=== PATIENT | female | born 1955 | race Caucasian/White ===

== ENCOUNTER 2017-08-22 11:43 | Emergency (ER) | payer SELFPAY ==
[2017-08-22 12:17] VITALS: RESP 18; TEMP 98.1
--- NOTE | 2017-08-22 14:33 | ED PDOC ---
Arrival/HPI - General Chief Complaint: Trauma Time Seen by Provider: 08/22/17 13:27 Historian: Patient, Family - History of Present Illness Narrative History of Present Illness (Text): 08/22/17 14:28 Pt is a 62 year old female BIB her daughter in law, for right low back pain x 3 days s/p fall after trying to get into the vehicle. Daughter who speaks Telugu describes the pt attempting to step up high with her left foot to climb into the SUV when she lost her footing and fell on her right side. Denies head injury or LOC. Pt had right sided rib fractures 1.5 years that she was treated for without complications. Stated this recent fall has caused tremendous pain that prevents her from ambulating well. Denies chest pain, shortness of breath, fever, chills, nausea, vomiting, diarrhea. 08/22/17 17:28 08/24/17 12:44 Time/Duration: 24 hours Symptom Onset: Sudden Symptom Course: Worsening Quality: Aching, Pressure Severity Level: Moderate Activities at Onset: Rest, Light Context: Sitting, Standing, Walking, Home (unable to stand and walk without pain ) Past Medical History - Provider Review Nursing Documentation Reviewed: Yes - Travel History Have you recently traveled outside [place] w/in the past 3 mons?: No - Past History Past History: No Previous - Infectious Disease Hx of Infectious Diseases: None - Reproductive Menopause: Yes - Hematological/Oncological Hx Cirrhosis: Yes (splenomegally and varices) - Musculoskeletal/Rheumatological Hx Arthritis: Yes - Gastrointestinal Other/Comment: rt renal calculus - Psychiatric Hx Psychophysiologic Disorder: No Hx Substance Use: No Family/Social History Family/Social History: Unknown Family HX Smoking Status: Unknown If Ever Smoked Hx Alcohol Use: No Hx Substance Use: No Allergies/Home Meds Allergies/Adverse Reactions: Allergies No Known Allergies Allergy (Verified 08/22/17 12:17) Home Medications: Home Meds Medication Instructions Recorded Confirmed Cholecalciferol (Vitamin D3) 1,000 unit PO DAILY 08/22/17 08/22/17 [Vitamin D3] Hydroxychloroquine Sulfate 300 mg PO DAILY 08/22/17 08/22/17 Propranolol [Inderal] 20 mg PO DAILY 08/22/17 08/22/17 Spironolactone [Aldactone] 50 mg PO DAILY 02/18/18 02/18/18 Review of Systems - Review of Systems Constitutional: Normal Eyes: Normal ENT: Normal Respiratory: Cough (URI/flu and is taking Tamiflu) Cardiovascular: Normal Gastrointestinal: Normal Musculoskeletal: Back Pain (Right sided back and rib pain) Skin: Normal Neurological: Normal Endocrine: Normal Hemo/Lymphatic: Normal Psychiatric: Normal Physical Exam Vital Signs Reviewed: Yes Vital Signs Temp Pulse Resp BP Pulse Ox 08/22/17 17:56 71 18 102/59 L 97 08/22/17 14:45 80 18 118/68 99 08/22/17 12:07 98.1 F 80 18 120/70 99 Temperature: Afebrile Blood Pressure: Normal Pulse: Regular Respiratory Rate: Normal Appearance: Positive for: Non-Toxic, Uncomfortable Pain Distress: Moderate Mental Status: Positive for: Alert and Oriented X 3 - Systems Exam Head: Present: Atraumatic, Normocephalic Pupils: Present: PERRL Extroacular Muscles: Present: EOMI Conjunctiva: Present: Normal Mouth: Present: Moist Mucous Membranes Neck: Present: Normal Range of Motion Respiratory/Chest: Present: Clear to Auscultation, Good Air Exchange. No: Respiratory Distress, Accessory Muscle Use Cardiovascular: Present: Regular Rate and Rhythm, Normal S1, S2. No: Murmurs Abdomen: Present: Normal Bowel Sounds. No: Tenderness, Distention, Peritoneal Signs Back: Present: Normal Inspection (no bruising or abrasions bilateral), Other ( right L4-5 point tenderness paraspinal) Upper Extremity: Present: Normal Inspection, Normal ROM, NORMAL PULSES. No: Cyanosis, Edema Lower Extremity: Present: Normal Inspection, NORMAL PULSES, Normal ROM. No: Edema Neurological: Present: GCS=15, CN II-XII Intact, Speech Normal Skin: Present: Warm, Dry, Normal Color. No: Rashes Psychiatric: Present: Alert, Oriented x 3, Normal Insight, Normal Concentration Medical Decision Making ED Course and Treatment: 08/22/17 14:33 Impression Pt is a 62 year old female BIB her daughter in law, for right lower back pain x 3 days s/p fall to the ground getting into the vehicle. Plan LS XR and Bilateral rib XR Toradol 30 mg im for pain Progress Note Pt responded well to toradol Family member at bedside produced a folder of recent health documents on the pt that reveal a thrombocytopenia, cirrhosis, splenomegaly, and varices. All NSAIDs and acetaminophen held LS XR revealed a left vertebral compression fracture Both Dr. March and myself spoke with the patient's son via cell phone in the room , who described the extensive admissions at various health facilities in [place] and [place]; we advised the that the patient should be held to do further labs to ascertain blood and chemistry. Both son and sister agreed. Family was strongly advised to find a Primary doctor for the patient who was [place] the [place], with significant health issues, in an effort to get her the care that she requires Labs reveal WBC 2.6 and platelets 67; lab profile improved compared to last labs at [facility] Patient's other son at bedside and gave further information regarding last admission; was assessed and treated at [facility] in [place], by Dr. Kimmie Zepeda contact number is [phone]. Patient was able to get out of bed, stand and walk across the room and back with mild pain; was able to ambulate without assistance; Pt will be dispo'd home with lidocaine TD patch for pain management VSS and pt ambulated out of ER with her son. 08/22/17 18:47 - Lab Interpretations Microbiology Results: Microbiology Results 08/22/17 22:15 Urine,Clean Catch Urine Culture - Final 10-50,000 CFU/ML. MULTIPLE SPECIES. PROBABLE CONTAMINATION. Lab Results: 08/22/17 17:25 08/22/17 17:25 Lab Results 08/22/17 17:45: PT 17.3 H, INR 1.50 H 08/22/17 17:45: Urine Color Dark yellow, Urine Appearance Sl cloudy, Urine pH 6.5, Ur Specific [place] 1.025, Urine Protein 30 H, Urine Glucose (UA) Negative , Urine Ketones Trace H, Urine Blood Moderate H, Urine Nitrate Negative, Urine Bilirubin Small H, Urine Urobilinogen 1.0 H, Ur Leukocyte Esterase Trace H, Urine RBC 10 - 15, Urine WBC 10 - 15, Ur Epithelial Cells 6 - 8, Urine Bacteria Mod 08/22/17 17:25: Sodium 139, Potassium 4.1, Chloride 105, Carbon Dioxide 26, Anion Gap 12, BUN 10, Creatinine 0.8, Est GFR ( Amer) > 60, Est GFR (Non- Af Amer) > 60, Random Glucose 97, Calcium 9.1, Total Bilirubin 1.4 H, Direct Bilirubin 0.5 H, AST 48 H, ALT 32, Alkaline Phosphatase 98, Total Protein 7.9, Albumin 3.2, Globulin 4.7, Albumin/Globulin Ratio 0.7 L 08/22/17 17:25: APTT 35.7 08/22/17 17:25: WBC 2.6 L*, RBC 3.68, Hgb 11.4 L, Hct 34.0 L, MCV 92.4, MCH 31.0 , MCHC 33.5, RDW 14.8 H, Plt Count 67 L, MPV 11.2 H, Gran % 54.6, Lymph % (Auto ) 29.3, [place] % (Auto) 14.5 H, Eos % (Auto) 1.2 L, Baso % (Auto) 0.4, Gran # 1.40 , Lymph # (Auto) 0.8 L, [place] # (Auto) 0.4, Eos # (Auto) 0.0, Baso # (Auto) 0.01 I have reviewed the lab results: Yes (wbc 2.6, Plts 67) - RAD Interpretation Narrative RAD Interpretations (Text): 08/22/17 18:20 PROCEDURE: Lumbar spine 08/22/2017. HISTORY: Injury. COMPARISON: No prior study available for comparison FINDINGS: BONES: Current study reveals in age-indeterminate anterior wedge compression deformities of the L1 segment. There is also an age-indeterminate compression deformity superior L2 endplate. DISC SPACES: Disc space narrowing noted at the at T12-L1 and to a lesser degree L1-L2 levels. Remaining disc space heights are relatively maintained. Small marginal anterolateral osteophyte formation also present at several levels. The facet joints are hypertrophic L5-S1 through the L1-L2 levels in decreasing order of severity. Nonspecific at calcifications present in the left upper abdomen. Multiple calcified injection buttock injection granulomata are present. OTHER FINDINGS: None. IMPRESSION: Age-indeterminate anterior wedge compression fracture L1 segment. There is also a mild on age-indeterminate compression fracture of the superior L1 endplate. Mild multilevel degenerative spondylosis as described. Radiology Orders: 08/22/17 13:28 LS SPINE AP/LAT [RAD] Stat RIBS BILATERAL [RAD] Stat It Quality Analyst: ED Physician, Radiologist - Medication Orders Current Medication Orders: Discontinued Medications Ketorolac Tromethamine (Toradol) 30 mg IM STAT STA Stop: 08/22/17 13:32 Last Admin: 08/22/17 13:56 Dose: 30 mg MAR Pain Assessment Document 08/22/17 13:56 RR (Rec: 08/22/17 13:56 RR [id number]) Pain Reassessment Is this a pain reassessment? Yes Sleep Is patient sleeping during reassessment? No Presence of Pain Presence of Pain Yes Pain Scale Used Pain Scale Used Numeric Location Pain Location Body Site Back Description Description Constant IM Administration Charges Document 08/22/17 13:56 RR (Rec: 08/22/17 13:56 RR [id number]) Injection Site MAR Injection Site Left Deltoid Charges for Administration # of IM Administrations 1 Lidocaine (Lidoderm) 1 ea TD DAILY STA Stop: 08/22/17 19:02 Last Admin: 08/22/17 19:23 Dose: 1 ea MAR Transdermal Patch Site Document 08/22/17 19:23 KAREEM (Rec: 08/22/17 19:28 KAREEM [id number]) Transdermal Patch Site Transdermal Patch Site Right Lower Back Disposition/Present on Arrival - Present on Arrival Any Indicators Present on Arrival: Yes History of DVT/PE: No History of Uncontrolled Diabetes: No Urinary Catheter: No History of Decub. Ulcer: No History Surgical Site Infection Following: None - Disposition Have Diagnosis and Disposition been Completed?: Yes Diagnosis: Vertebral compression fracture, Thrombocytopenia, Cirrhosis Disposition: HOME/ ROUTINE Disposition Time: 18:41 Patient Plan: Discharge Condition: STABLE Discharge Instructions (ExitCare): Vertebral Compression Fracture, Bleeding Precautions Additional Instructions: Emerita Flores, Please follow up with a Primary care doctor in [place] for appropriate care of your vertebral compression fracture and thrombocytopenia. We have prescribed Liocaine 5% transdermal patches that is placed over the low back to assist with managing pain. We strongly encourage you to get physical and occupational therapy. If you experience any alarming symptoms such as fever and worsening pain, return to the emergency department immediately. Take care and be well. Prescriptions: Lidocaine 5% [Lidoderm] 1 ea TD Q12 5 Days #10 patch Referrals: PCP,NO [Primary Care Provider] - Follow up with primary [facility] [place]Outside] - Follow up with primary [facility] [Outside] - Follow up with primary Forms: [employer] (Telugu)
--- NOTE | 2017-08-22 16:30 | RAD ---
PROCEDURE: Bilateral ribs dated 08/22/2017. HISTORY: Injury. COMPARISON: No prior studies available for comparison although correlation made with concurrent radiographs of the lumbar spine. . TECHNIQUE: Two views of the right and two views of the left ribs performed. No prior study available for comparison. FINDINGS: RIGHT RIBS: The current study reveals no definitive radiographic evidence of acute left or right-sided rib fracture. No cortical destructive changes or focal lesions are identified. Note that the lower ribs particularly on the right side are less well seen due to overlying bowel related type artifact. No evidence of infiltrate effusion or pneumothorax. LEFT RIBS: No fracture or focal lesion visualized. LUNGS: Clear. PLEURA: No pneumothorax or pleural fluid. CARDIOVASCULAR: Normal sized heart. No pulmonary vascular congestion. OTHER FINDINGS: None. IMPRESSION: No evidence of acute displaced right or left-sided rib fracture deformities. No infiltrate effusion or pneumothorax. Mild multilevel degenerative spondylosis of the thoracic spine.
--- NOTE | 2017-08-22 16:33 | RAD ---
PROCEDURE: Lumbar spine 08/22/2017. HISTORY: Injury. COMPARISON: No prior study available for comparison FINDINGS: BONES: Current study reveals in age-indeterminate anterior wedge compression deformities of the L1 segment. There is also an age-indeterminate compression deformity superior L2 endplate. DISC SPACES: Disc space narrowing noted at the at T12-L1 and to a lesser degree L1-L2 levels. Remaining disc space heights are relatively maintained. Small marginal anterolateral osteophyte formation also present at several levels. The facet joints are hypertrophic L5-S1 through the L1-L2 levels in decreasing order of severity. Nonspecific at calcifications present in the left upper abdomen. Multiple calcified injection buttock injection granulomata are present. OTHER FINDINGS: None. IMPRESSION: Age-indeterminate anterior wedge compression fracture L1 segment. There is also a mild on age-indeterminate compression fracture of the superior L1 endplate. . Mild multilevel degenerative spondylosis as described.
[2017-08-22 17:49] LABS: BASO # 0.01 K/mm3 (0.0-2.0); BASO % 0.4 % (0.0-3.0); EOS % 1.2 % (1.5-5.0); GRAN # 1.4 (1.4-6.5); GRAN % 54.6 % (50.0-68.0); HEMOGLOBIN 11.4 g/dL (12.0-16.0); LYMPH # 0.8 (1.2-3.4); LYMPH % 29.3 % (22.0-35.0); MEAN CELL VOLUME 92.4 fl (80.0-105.0); MEAN CORPUSCULAR HGB CONC 33.5 g/dl (31.0-37.0); MEAN PLATELET VOLUME 11.2 fl (7.0-11.0); MONO # 0.4 (0.1-0.6); MONO % 14.5 % (1.0-6.0); RBC 3.68 10^6/uL (3.5-6.1); RED CELL DISTRIBUTION WIDTH 14.8 % (11.5-14.5)
[2017-08-22 17:57] VITALS: BP 102/59; PULSE 71; O2SAT 97
[2017-08-22 17:57] LABS: WHITE BLOOD COUNT 2.6 10^3/ul (4.5-11.0)
[2017-08-22 18:00] LABS: ALB/GLOB RATIO 0.7 (1.1-1.8); ALBUMIN 3.2 g/dL (3.0-4.8); ALT/SGPT 32 U/L (7-56); AST/SGOT 48 U/L (14-36); BILIRUBIN,DIRECT 0.5 mg/dL (0.0-0.4); BLOOD UREA NITROGEN 10 mg/dL (7-21); CALCIUM 9.1 mg/dL (8.4-10.5); GFR AFRICAN-AMERICAN > 60; GFR NON-AFRICAN AMERICAN > 60
[2017-08-22 18:03] LABS: PH,URINE 6.5 (4.7-8.0); URINE APPEARANCE SL CLOUDY (CLEAR); URINE BILIRUBIN SMALL (NEGATIVE); URINE BLOOD MODERATE (NEGATIVE); URINE COLOR DARK YELLOW (YELLOW); URINE GLUCOSE (UA) NEGATIVE (NEGATIVE); URINE LEUKOCYTE ESTERASE TRACE Leu/uL (NEGATIVE); URINE NITRATE NEGATIVE (NEGATIVE); URINE PROTEIN 30 mg/dL (<30 mg/dL)
[2017-08-22 18:12] LABS: INR 1.5 (0.93-1.08); PROTHROMBIN TIME 17.3 SECONDS (9.4-12.5)
[2017-08-22 18:18] LABS: URINE BACTERIA MOD (NEG)
[2017-08-22] MEDS ORDERED: Lidocaine 5% Patch TD STA (19:01)
[2017-08-23] MEDS ORDERED: Lidocaine 5% Patch TD SCH (10:00)
== END 2017-08-22 19:28 | disposition home or self-care (01) ==
LOC: ED 11:43
DX: M48.56XA Collapsed vertebra, not elsewhere classified, lumbar region, initial encounter for fracture (principal); D69.6 Thrombocytopenia, unspecified; K74.60 Unspecified cirrhosis of liver
CPT/HCPCS: 71110; 72100; 80053; 81001; 82248; 85025; 85610; 85730; 87086; 96372; 99285; J1885

== ENCOUNTER 2018-09-03 13:13 | Inpatient (IN) | payer OTHER ==
--- NOTE | 2018-09-03 14:31 | ED PDOC ---
Arrival/HPI - General Chief Complaint: ENT Problem Time Seen by Provider: 09/03/18 13:51 Past Medical History - Past History Past History: No Previous - Infectious Disease Hx of Infectious Diseases: None - Reproductive Menopause: Yes - Cardiac Hx Cardiac Disorders: No - Pulmonary Hx Respiratory Disorders: No - Hematological/Oncological Hx Cirrhosis: Yes (splenomegally and varices) - Musculoskeletal/Rheumatological Hx Arthritis: Yes - Gastrointestinal Other/Comment: rt renal calculus - Psychiatric Hx Psychophysiologic Disorder: No Hx Substance Use: No - Anesthesia Hx Anesthesia: No Hx Anesthesia Reactions: No Family/Social History Smoking Status: Unknown If Ever Smoked Hx Alcohol Use: No Hx Substance Use: No Allergies/Home Meds Allergies/Adverse Reactions: Allergies No Known Allergies Allergy (Verified 08/22/17 12:17) Home Medications: Home Meds Medication Instructions Recorded Confirmed Cholecalciferol (Vitamin D3) 1,000 unit PO DAILY 08/22/17 09/03/18 [Vitamin D3] Hydroxychloroquine Sulfate 200 mg PO DAILY 08/22/17 09/03/18 Spironolactone [Aldactone] 50 mg PO DAILY 08/22/17 09/03/18 Physical Exam Vital Signs Temp Pulse Resp BP Pulse Ox 09/03/18 13:53 98.2 F 80 18 102/75 95 Medical Decision Making - RAD Interpretation Radiology Orders: 09/03/18 14:07 ABDOMEN & PELVIS [ABD & PELVIS IV CONTRAST ONLY] [CT] Stat Disposition/Present on Arrival - Present on Arrival History of DVT/PE: No History of Uncontrolled Diabetes: No Urinary Catheter: No History of Decub. Ulcer: No History Surgical Site Infection Following: None - Disposition Referrals: PCP,NO [Primary Care Provider] - Follow up with primary
--- NOTE | 2018-09-03 14:33 | ED PDOC ---
Arrival/HPI - General Chief Complaint: ENT Problem Time Seen by Provider: 09/03/18 13:51 Historian: Patient, Other (friend) - History of Present Illness Narrative History of Present Illness (Text): 09/03/18 14:14 63 year old female, whose past medical history includes hepatosplenomegaly, liver cirrhosis, and recurrent UTI, presents to the emergency department accompanied by friend for complaints of productive cough, chest discomfort, right ear pain, and fever that began last week. Patient also reports bilateral flank pain and blood in urine. She reports that she was diagnosed with a UTI 2 months ago, but has not taken any antibiotics to treat it. Patient is visiting from [place]. Patient denies any chills, shortness of breath, nausea, vomiting, diarrhea, neck pain, headache, dizziness, or any other complaints. Symptom Onset: Gradual Symptom Course: Unchanged Activities at Onset: Light Context: Home Past Medical History - Provider Review Nursing Documentation Reviewed: Yes - Past History Past History: No Previous - Infectious Disease Hx of Infectious Diseases: None - Reproductive Menopause: Yes - Cardiac Hx Cardiac Disorders: No - Pulmonary Hx Respiratory Disorders: No - Hematological/Oncological Hx Cirrhosis: Yes (splenomegally and varices) - Musculoskeletal/Rheumatological Hx Arthritis: Yes - Gastrointestinal Other/Comment: rt renal calculus - Psychiatric Hx Psychophysiologic Disorder: No Hx Substance Use: No - Anesthesia Hx Anesthesia: No Hx Anesthesia Reactions: No Family/Social History - Physician Review Nursing Documentation Reviewed: Yes Family/Social History: No Known Family HX Smoking Status: Unknown If Ever Smoked Hx Alcohol Use: No Hx Substance Use: No Allergies/Home Meds Allergies/Adverse Reactions: Allergies No Known Allergies Allergy (Verified 08/22/17 12:17) Home Medications: Home Meds Medication Instructions Recorded Confirmed Cholecalciferol (Vitamin D3) 1,000 unit PO DAILY 08/22/17 09/03/18 [Vitamin D3] Hydroxychloroquine Sulfate 200 mg PO DAILY 08/22/17 09/03/18 Spironolactone [Aldactone] 50 mg PO DAILY 08/22/17 09/03/18 Review of Systems - Physician Review All systems were reviewed & negative as marked: Yes - Review of Systems ENT: Epistaxis, Other (right ear pain) Respiratory: Cough Cardiovascular: absent: Chest Pain Gastrointestinal: Abdominal Pain. absent: Diarrhea, Nausea, Vomiting Genitourinary Female: Hematuria. absent: Dysuria, Frequency Musculoskeletal: absent: Neck Pain Neurological: absent: Headache Physical Exam - Physical Exam Narrative Physical Exam (Text): Gen: VS reviewed, alert, well developed, well nourished, nontoxic, mild distress. ENT: Spooty excoriation to the right nare. normal pharynx. Eye: EOMI, PERRL. Neck: no JVD, supple, no adenopathy. CV: regular rate, regular rhythm, no rubs, no murmur, no gallops, S1, S2, pulses equal and strong. Pulm: no distress, clear to auscultation, no wheeze, no rhonchi, breath sounds equal, no rales. Abd: mild to moderate RUQ, LUQ, and LLQ tenderness with some guarding, no rebound, no rigidity, normal bowel sounds. Ext: no edema. Skin: good color, no rash, no cyanosis. Psych: responds appropriately to questions, normal affect. Neuro: oriented x 3, CN2-12 intact grossly, motor intact, sensation intact. Vital Signs Reviewed: Yes Vital Signs Temp Pulse Resp BP Pulse Ox 09/03/18 13:53 98.2 F 80 18 102/75 95 Temperature: Afebrile Blood Pressure: Normal Pulse: Regular Respiratory Rate: Normal Medical Decision Making ED Course and Treatment: 09/03/18 14:14 Impression: 63 year old female, presents complaining of productive cough, chest discomfort, and fever that began alst week. Patient also reports bilateral flank pain and bloody urine. Patient was diagnosed with a UTI 2 months ago which has not been treated. Plan: -- CT Abdomen & Pelvis IV Contrast -- EKG -- Labs -- Urinalysis -- Reassess and disposition Progress Notes: 09/03/18 18:[address] pimentel to the hospitalist service. patient to be admitted for multiple systemic complaints including productive cough, abdominal pain and hematuria. Will tx for pneumonia, consult surgery for CT findings showing pericholecystic fluid in light of abdominal pain. The abdominal fluid is probably ascites but will get surgical consult. case discussed with surgery resident and will see pt in consult. - RAD Interpretation Narrative RAD Interpretations (Text): Chest X-Ray Dictator : Shahnaz Berrios MD Report Date : 09/03/2018 16:45 IMPRESSION: Mild left basilar opacities may reflect pneumonia PROCEDURE: CT Abdomen and Pelvis with contrast Dictator : Shahnaz Berrios MD Report Date : 09/03/2018 17:13:09 IMPRESSION: Esophageal varices. Upper abdominal varices including splenic. Nodular hepatic contour. Correlate clinically for cirrhosis. Severe splenomegaly. Linear hypodensity seen at the inferior spleen, possibly cleft. Correlate clinically. Marked gallbladder wall thickening/pericholecystic edema. No calcified gallstones identified. Mild abdominal/pelvic edema. Small perihepatic ascites. Small bowel wall thickening. Correlate clinically for enteritis. Rectal wall thickening. Correlate clinically for infectious/inflammatory etiologies. Follow-up colonoscopy may be considered in order to exclude possibility of malignant neoplasm. Small right effusion. Bibasilar atelectasis. Additional findings as above. Radiology Orders: 09/03/18 14:07 ABDOMEN & PELVIS [ABD & PELVIS IV CONTRAST ONLY] [CT] Stat Market Asset Protection Manager: Radiologist - EKG Interpretation EKG Interpretation (Text): 09/03/18 14:25 EKG shows NSR at 74 BPM with normal QRS, normal axis, no acute ST/T wave abnormalities. Interpreted by me. Interpreted by ED Physician: Yes Type: 12 lead EKG - Scribe Statement The provider has reviewed the documentation as recorded by the Vivienne Orta Provider Scribe Attestation: All medical record entries made by the Vivienne were at my direction and personally dictated by me. I have reviewed the chart and agree that the record accurately reflects my personal performance of the history, physical exam, medical decision making, and the department course for this patient. I have also personally directed, reviewed, and agree with the discharge instructions and disposition. Disposition/Present on Arrival - Present on Arrival Any Indicators Present on Arrival: Yes History of DVT/PE: No History of Uncontrolled Diabetes: No Urinary Catheter: No History of Decub. Ulcer: No History Surgical Site Infection Following: None - Disposition Have Diagnosis and Disposition been Completed?: Yes Diagnosis: Pneumonia, Neutropenia Disposition: HOSPITALIZED Disposition Time: 18:17 Patient Plan: Admission Patient Problems: Current Active Problems Problem Status Onset Pneumonia Acute Neutropenia Acute Condition: GUARDED
[2018-09-03 15:09] LABS: EOS % 1.2 % (1.5-5.0); HEMOGLOBIN 11.1 g/dL (12.0-16.0); LYMPH # 0.5 (1.2-3.4); LYMPH % 29.6 % (22.0-35.0); MEAN CELL VOLUME 90.5 fl (80.0-105.0); MEAN CORPUSCULAR HEMOGLOBIN 30.9 pg (25.0-35.0); MEAN CORPUSCULAR HGB CONC 34.2 g/dl (31.0-37.0); MONO # 0.2 (0.1-0.6); MONO % 14.2 % (1.0-6.0); RBC 3.59 10^6/uL (3.5-6.1); RED CELL DISTRIBUTION WIDTH 14.6 % (11.5-14.5)
[2018-09-03 15:18] LABS: ALB/GLOB RATIO 0.7 (1.1-1.8); ALT/SGPT 38 U/L (7-56); AST/SGOT 95 U/L (14-36); BLOOD UREA NITROGEN 13 mg/dL (7-21); CALCIUM 8.1 mg/dL (8.4-10.5); GFR NON-AFRICAN AMERICAN > 60; LIPASE 179 U/L (23-300)
[2018-09-03 15:19] LABS: INR 1.69; PARTIAL THROMBOPLASTIN TIME 34.6 Seconds (26.9-38.3); PROTHROMBIN TIME 18.8 SECONDS (9.4-12.5)
[2018-09-03 15:25] LABS: PH,URINE 6.5 (4.7-8.0); URINE BILIRUBIN SMALL (NEGATIVE); URINE BLOOD LARGE (NEGATIVE); URINE GLUCOSE (UA) NEGATIVE (NEGATIVE); URINE LEUKOCYTE ESTERASE TRACE Leu/uL (NEGATIVE); URINE PROTEIN TRACE mg/dL (<30 mg/dL)
[2018-09-03 15:26] LABS: URINE APPEARANCE CLEAR (CLEAR); URINE COLOR DARK YELLOW (YELLOW)
[2018-09-03 15:35] LABS: PLATELET COUNT 26 10^3/uL (120.0-450.0); WHITE BLOOD COUNT 1.6 10^3/uL (4.5-11.0)
[2018-09-03 15:40] LABS: URINE BACTERIA SMALL /hpf
[2018-09-03 15:48] LABS: BAND 3 % (0-2); LYMPHOCYTE 26 % (22.0-35.0); MONOCYTE 7 % (1.0-6.0); NEUTROPHIL 64 % (50.0-70.0)
[2018-09-03 15:49] LABS: PLATELET ESTIMATE LOW (NORMAL)
--- NOTE | 2018-09-03 16:49 | RAD ---
HISTORY: cough, pneumonia COMPARISON: Bilateral rib series performed 08/22/17 TECHNIQUE: Chest PA and lateral FINDINGS: LUNGS: Mild left basilar opacities may reflect pneumonia. Please note that chest x-ray has limited sensitivity for the detection of pulmonary masses. PLEURA: No significant pleural effusion identified. No definite pneumothorax . CARDIOVASCULAR: Heart size appears within normal limits. Faint atherosclerotic calcifications present. OSSEOUS STRUCTURES: Osseous demineralization. Degenerative changes. Acromioclavicular arthropathy. Kyphosis. VISUALIZED UPPER ABDOMEN: Unremarkable. OTHER FINDINGS: None. IMPRESSION: Mild left basilar opacities may reflect pneumonia.
--- NOTE | 2018-09-03 17:38 | CT ---
Date of service: 09/03/2018 PROCEDURE: CT Abdomen and Pelvis with contrast HISTORY: pain COMPARISON: None available. TECHNIQUE: Contrast dose: 150 mL Omnipaque 350 IV Radiation dose: Total exam DLP = 731.49 mGy-cm. This CT exam was performed using one or more of the following dose reduction techniques: Automated exposure control, adjustment of the mA and/or kV according to patient size, and/or use of iterative reconstruction technique. FINDINGS: LOWER THORAX: Small right effusion. Bibasilar atelectasis. No visible pneumothorax. Esophageal varices. Upper abdominal varices including splenic. LIVER: Nodular hepatic contour. Hypoattenuation of the liver compatible with hepatic steatosis. GALLBLADDER AND BILE DUCTS: Marked gallbladder wall thickening/pericholecystic edema. No calcified gallstones identified. PANCREAS: Pancreatic atrophy. SPLEEN: Severe splenomegaly. Linear hypodensity seen at the inferior spleen, possibly cleft. Correlate clinically. ADRENALS: Unremarkable KIDNEYS AND URETERS: The kidneys enhance symmetrically. No hydronephrosis or obstructing calculus identified. VASCULATURE: No aortic aneurysm. No atherosclerotic calcification or mural plaque present. BOWEL: Stomach is nondistended. Lack of oral contrast limits evaluation for bowel pathology. Bowel loops appear within normal limits of caliber without evidence of obstruction. Small bowel wall thickening. Rectal wall thickening. APPENDIX: The appendix appears within normal limits of caliber. PERITONEUM: No significant free fluid. No definite free air. LYMPH NODES: Mesenteric and retroperitoneal adenopathy. BLADDER: Unremarkable. REPRODUCTIVE: The uterus is present. 12 mm probable right ovarian cyst. BONES: Osseous demineralization. Degenerative changes. L1 compression fracture deformity. OTHER FINDINGS: Calcifications within bilateral buttocks presumably due to injection granulomas. IMPRESSION: Esophageal varices. Upper abdominal varices including splenic. Nodular hepatic contour. Correlate clinically for cirrhosis. Severe splenomegaly. Linear hypodensity seen at the inferior spleen, possibly cleft. Correlate clinically. Marked gallbladder wall thickening/pericholecystic edema. No calcified gallstones identified. Mild abdominal/pelvic edema. Small perihepatic ascites. Small bowel wall thickening. Correlate clinically for enteritis. Rectal wall thickening. Correlate clinically for infectious/inflammatory etiologies. Follow-up colonoscopy may be considered in order to exclude possibility of malignant neoplasm. Small right effusion. Bibasilar atelectasis. Additional findings as above.
[2018-09-03] MEDS ORDERED: Cefepime IV 2 gm in NS 2 GM/100 ML BAG IVPB STA (17:44)
[2018-09-03] MEDS ORDERED: Sodium Chloride 0.9% 1,000 ML IV STA (18:20)
--- NOTE | 2018-09-03 19:09 | CP.PCM.CON ---
<Stephany Clemente - Last Filed: 09/04/18 20:03> History of Present Illness - History of Present Illness History of Present Illness: General Surgery Consult Note for Dr. Costa consulted for r/o cholecystitis/GB disease Patient is a 63 yr old female with liver cirrhosis (MELD 19 Cookie Chris class B) hepatosplenomegaly, ascites, esophageal varices and recurrent UTI admitted for Pneumonia and possible UTI/Urolithiasis. Surgery was consulted after CT finding of GB wall thickening, mild perihepatic ascites and pericholecystic fluid. Patient endorses mild non specific diffuse abdominal pain worst in her LUQ. She otherwise denies n/v, chills, stool changes and history of gallstones. She follows up regularly at a hepatology clinic in [place]. She recently travelled to [facility]. PMH: hepatosplenomegaly, liver failure, RA PSH: denies ALL: nkda Social: denies ETOH, smoking and illicit drugs Review of Systems - Review of Systems All systems: reviewed and no additional remarkable complaints except (as per HPI) Past Patient History - Infectious Disease Hx of Infectious Diseases: None - Past Social History Smoking Status: Unknown If Ever Smoked - CARDIAC Hx Cardiac Disorders: No - PULMONARY Hx Respiratory Disorders: No - HEMATOLOGICAL/ONCOLOGICAL Hx Cirrhosis: Yes (splenomegally and varices) - MUSCULOSKELETAL/RHEUMATOLOGICAL Hx Arthritis: Yes - GASTROINTESTINAL Other/Comment: rt renal calculus - PSYCHIATRIC Hx Psychophysiologic Disorder: No Hx Substance Use: No - ANESTHESIA Hx Anesthesia: No Hx Anesthesia Reactions: No Meds Allergies/Adverse Reactions: Allergies Allergy/AdvReac Type Severity Reaction Status Date / Time No Known Allergies Allergy Verified 08/22/17 12:17 - Medications Medications: Current Medications Sodium Chloride (Sodium Chloride 0.9%) 1,000 mls @ 999 mls/hr IV .Q1H1M STA Stop: 09/03/18 19:20 Physical Exam - Constitutional Appears: Older Than Stated Age, Cachectic, Chronically Ill - Head Exam Head Exam: ATRAUMATIC - Eye Exam Eye Exam: EOMI - ENT Exam ENT Exam: Mucous Membranes Dry - Respiratory Exam Respiratory Exam: Rales, Rhonchi - Cardiovascular Exam Cardiovascular Exam: REGULAR RHYTHM - GI/Abdominal Exam GI & Abdominal Exam: Guarding (LUQ), Soft, Tenderness (diffuse mild). absent: Distended - Extremities Exam Extremities exam: Negative for: calf tenderness - Back Exam Back exam: CVA tenderness (L), paraspinal tenderness (thoracic) - Neurological Exam Neurological exam: Alert, Oriented x3 - Psychiatric Exam Psychiatric exam: Normal Affect, Normal Mood - Skin Skin Exam: Dry, Intact, Normal Color, Warm Results - Vital Signs Recent Vital Signs: Last Vital Signs Temp 98.2 F 09/03/18 13:53 Pulse 80 09/03/18 13:53 Resp 18 09/03/18 13:53 BP 102/75 09/03/18 13:53 Pulse Ox 95 09/03/18 13:53 - Labs Result Diagrams: 09/03/18 15:07 09/03/18 15:07 Labs: Laboratory Results - last 24 hr 09/03/18 09/03/18 09/03/18 15:07 15:07 15:07 WBC 1.6 L* RBC 3.59 Hgb 11.1 L Hct 32.5 L MCV 90.5 MCH 30.9 MCHC 34.2 RDW 14.6 H Plt Count 26 L* Neut % (Auto) 55.0 Lymph % (Auto) 29.6 [place] % (Auto) 14.2 H Eos % (Auto) 1.2 L Baso % (Auto) 0.0 Lymph # (Auto) 0.5 L [place] # (Auto) 0.2 Eos # (Auto) 0.0 Baso # (Auto) 0.00 Absolute Neuts (auto) 0.89 L Neutrophils % (Manual) 64 Band Neutrophils % 3 H Lymphocytes % (Manual) 26 Monocytes % (Manual) 7 H Platelet Evaluation Low PT 18.8 H INR 1.69 APTT 34.6 Sodium Potassium Chloride Carbon Dioxide Anion Gap BUN Creatinine Est GFR ( Amer) Est GFR (Non-Af Amer) Random Glucose Calcium Magnesium Total Bilirubin AST ALT Alkaline Phosphatase Total Protein Albumin Globulin Albumin/Globulin Ratio Lipase Urine Color Dark yellow Urine Appearance Clear Urine pH 6.5 Ur Specific Schuyler 1.020 Urine Protein Trace H Urine Glucose (UA) Negative Urine Ketones Negative Urine Blood Large H Urine Nitrate Negative Urine Bilirubin Small H Urine Urobilinogen 2.0 H Ur Leukocyte Esterase Trace H Urine RBC 5 - 10 H Urine WBC 1 - 3 Ur Epithelial Cells 4 - 5 Urine Bacteria Small Influenza Typ A,B (EIA) 09/03/18 09/03/18 15:07 15:07 WBC RBC Hgb Hct MCV MCH MCHC RDW Plt Count Neut % (Auto) Lymph % (Auto) [place] % (Auto) Eos % (Auto) Baso % (Auto) Lymph # (Auto) [place] # (Auto) Eos # (Auto) Baso # (Auto) Absolute Neuts (auto) Neutrophils % (Manual) Band Neutrophils % Lymphocytes % (Manual) Monocytes % (Manual) Platelet Evaluation PT INR APTT Sodium 133 Potassium 3.5 L Chloride 100 Carbon Dioxide 26 Anion Gap 10 BUN 13 Creatinine 0.7 Est GFR ( Amer) > 60 Est GFR (Non-Af Amer) > 60 Random Glucose 79 Calcium 8.1 L Magnesium 2.0 Total Bilirubin 2.4 H AST 95 H D ALT 38 Alkaline Phosphatase 93 Total Protein 7.5 Albumin 3.0 Globulin 4.5 Albumin/Globulin Ratio 0.7 L Lipase 179 Urine Color Urine Appearance Urine pH Ur Specific Schuyler Urine Protein Urine Glucose (UA) Urine Ketones Urine Blood Urine Nitrate Urine Bilirubin Urine Urobilinogen Ur Leukocyte Esterase Urine RBC Urine WBC Ur Epithelial Cells Urine Bacteria Influenza Typ A,B (EIA) Negative for flu a/b Assessment & Plan - Assessment and Plan (Free Text) Assessment: 63 F with advanced liver cirrhosis (MELD 19, Cookie chris class B) admitted for pneumonia with pericholecystic fluid and wall thickening on CT Plan: - medical management per primary team - abd US to r/o cholelithiasis - discussed with Dr. Julissa Clemente, PGY 1 - Date & Time Date: 09/03/18 Time: 16:55 <Bruce Costa B - Last Filed: 09/04/18 21:29> Meds - Medications Medications: Current Medications Albuterol/Ipratropium (Duoneb 3 Mg/0.5 Mg (3 Ml) Ud) 3 ml IH [id number] NOELLE Cholecalciferol (Vitamin D) 1,000 intlu PO DAILY NOELLE Last Admin: 09/04/18 11:00 Dose: 1,000 intlu Meropenem (Merrem Iv 1 Gm Premix) 1 gm in 50 mls @ 100 mls/hr IVPB Q8 NOELLE; Protocol Stop: 09/13/18 14:01 Last Admin: 09/04/18 14:26 Dose: 100 mls/hr Vancomycin HCl (Vancomycin 1gm) 1 gm in 250 mls @ 167 mls/hr IVPB Q12H NOELLE; Protocol Stop: 09/13/18 10:16 Last Admin: 09/04/18 11:00 Dose: 167 mls/hr Levofloxacin/Dextrose (Levaquin 750mg) 750 mg IVPB DAILY NOELLE; Protocol Stop: 09/13/18 10:16 Last Admin: 09/04/18 10:59 Dose: 750 mg Pantoprazole Sodium (Protonix Inj) 40 mg IVP Q12 NOELLE Last Admin: 09/04/18 11:00 Dose: 40 mg Propranolol HCl (Inderal) 10 mg PO TID NOELLE Last Admin: 09/04/18 17:28 Dose: Not Given Results - Vital Signs Recent Vital Signs: Last Vital Signs Temp 99.3 F 09/04/18 18:00 Pulse 72 09/04/18 18:00 Resp 18 09/04/18 18:00 BP 93/46 L 09/04/18 18:00 Pulse Ox 95 09/04/18 05:58 - Labs Result Diagrams: 09/04/18 09:00 09/04/18 09:00 Labs: Laboratory Results - last 24 hr 09/03/18 09/03/18 09/03/18 19:00 19:00 19:00 WBC RBC Hgb Hct MCV MCH MCHC RDW Plt Count Neut % (Auto) Lymph % (Auto) [place] % (Auto) Eos % (Auto) Baso % (Auto) Lymph # (Auto) [place] # (Auto) Eos # (Auto) Baso # (Auto) Absolute Neuts (auto) ESR Sodium Potassium Chloride Carbon Dioxide Anion Gap BUN Creatinine Est GFR ( Amer) Est GFR (Non-Af Amer) Random Glucose Calcium Ferritin 483.0 Total Bilirubin AST ALT Alkaline Phosphatase C-React Prot High Sens > 15.00 H Total Protein Albumin Globulin Albumin/Globulin Ratio Alpha Fetoprotein Carcinoembryonic Ag CA 19-9 Antigen CA 125 Antigen Vitamin B12 724 25-OH Vitamin D Total Folate 9.2 Procalcitonin 0.67 H Blood Type Blood Type Confirm Antibody Screen BBK History Checked 09/03/18 09/04/18 09/04/18 20:40 09:00 09:00 WBC RBC Hgb Hct MCV MCH MCHC RDW Plt Count Neut % (Auto) Lymph % (Auto) [place] % (Auto) Eos % (Auto) Baso % (Auto) Lymph # (Auto) [place] # (Auto) Eos # (Auto) Baso # (Auto) Absolute Neuts (auto) ESR 76 H Sodium Potassium Chloride Carbon Dioxide Anion Gap BUN Creatinine Est GFR ( Amer) Est GFR (Non-Af Amer) Random Glucose Calcium Ferritin Total Bilirubin AST ALT Alkaline Phosphatase C-React Prot High Sens Total Protein Albumin Globulin Albumin/Globulin Ratio Alpha Fetoprotein 3.4 Carcinoembryonic Ag CA 19-9 Antigen CA 125 Antigen Vitamin B12 25-OH Vitamin D Total 49.2 Folate Procalcitonin Blood Type O POSITIVE Blood Type Confirm Antibody Screen Negative BBK History Checked No verified bt 09/04/18 09/04/18 09/04/18 09:00 09:00 09:00 WBC 1.5 L* RBC 3.76 Hgb 11.4 L Hct 34.0 L MCV 90.4 MCH 30.3 MCHC 33.5 RDW 15.0 H Plt Count 25 L* Neut % (Auto) 51.6 Lymph % (Auto) 33.6 [place] % (Auto) 12.8 H Eos % (Auto) 0.7 L Baso % (Auto) 1.3 Lymph # (Auto) 0.5 L [place] # (Auto) 0.2 Eos # (Auto) 0.0 Baso # (Auto) 0.02 Absolute Neuts (auto) 0.77 L ESR Sodium 134 Potassium 4.3 Chloride 104 Carbon Dioxide 23 Anion Gap 11 BUN 9 Creatinine 0.6 L Est GFR ( Amer) > 60 Est GFR (Non-Af Amer) > 60 Random Glucose 95 Calcium 8.1 L Ferritin Total Bilirubin 2.0 H AST 79 H ALT 37 Alkaline Phosphatase 82 C-React Prot High Sens Total Protein 7.1 Albumin 2.8 L Globulin 4.3 Albumin/Globulin Ratio 0.7 L Alpha Fetoprotein Carcinoembryonic Ag 2.9 CA 19-9 Antigen 38.5 H CA 125 Antigen 38.7 H Vitamin B12 25-OH Vitamin D Total Folate Procalcitonin Blood Type Blood Type Confirm Antibody Screen BBK History Checked 09/04/18 09:45 WBC RBC Hgb Hct MCV MCH MCHC RDW Plt Count Neut % (Auto) Lymph % (Auto) [place] % (Auto) Eos % (Auto) Baso % (Auto) Lymph # (Auto) [place] # (Auto) Eos # (Auto) Baso # (Auto) Absolute Neuts (auto) ESR Sodium Potassium Chloride Carbon Dioxide Anion Gap BUN Creatinine Est GFR ( Amer) Est GFR (Non-Af Amer) Random Glucose Calcium Ferritin Total Bilirubin AST ALT Alkaline Phosphatase C-React Prot High Sens Total Protein Albumin Globulin Albumin/Globulin Ratio Alpha Fetoprotein Carcinoembryonic Ag CA 19-9 Antigen CA 125 Antigen Vitamin B12 25-OH Vitamin D Total Folate Procalcitonin Blood Type Blood Type Confirm O POSITIVE Antibody Screen BBK History Checked Attending/Attestation - Attestation I have personally seen and examined this patient.: Yes I have fully participated in the care of the patient.: Yes I have reviewed all pertinent clinical information: Yes Notes (Text): Pt was seen and examined at bedside Agree with above note and assessment Pt with pneumonia, neutropenia and Ascites Abdomen: Soft, mildly distended, mild tender Labs and radiology reviewed Ass: No clinical evidence of gallbladder dis, Ascites, PNA Plan: C/w current mx No need for any surgical intervention C.w IV antibiotics f.u prn Plan d.w pt in detail Risk and benefit explained in detail.
[2018-09-03] MEDS ORDERED: Potassium Chloride 20 mEq ER Tab PO ONE (19:37)
[2018-09-03 20:33] LABS: BILIRUBIN,DIRECT 1.2 mg/dL (0.0-0.4)
--- NOTE | 2018-09-03 20:35 | CP.PCM.HP ---
<RadhaMissy - Last Filed: 09/04/18 06:30> History of Present Illness - History of Present Illness History of Present Illness: Missy Garcia, PGY-1, Internal Medical History and Physical for Dr. Wren 63 year old Yi speaking female with past medical history of hepatosplenomegaly, liver cirrhosis due to unknown cause, recurrent UTI, and splenomegaly presents with epigastric abdominal pain radiating to the left side of the lumbar area and to the left scapula. Patient denies any episodes of nausea, vomiting, constipation, or diarrhea. Patient reports traveling to [facility] for 1.5 months and returned one week ago but did not eat anything out of the ordinary. Patient has had liver disease for the past two years and has been evaluated at [facility] but patient and daughter in law are unsure of the results of her tests. However, she was told that her hepatomegaly led to irritation of the spleen leading to splenomegaly possible causing this pain. Patient has had an endoscopy in the past but family at bedside does not recall the results. Patient has also had red urine for 3 or 4 days. Patient has not taken any new medication in that time. Patient does not have any dysuria or change in urinary frequency. Patient was treated for a UTI in [facility] at an unknown time for antibiotics for 7 days. Patient is unable to recall the antibiotic. She also reports subjective fever, chills, body aches, productive cough with green and bloody sputum for 1 week. Patient denies night sweats and weight loss. Influenza screen was negative on this admission. Patient also has chronic leukopenia but is unsure why she has leukopenia. [id number] reported that she will bring a fax of the information from [facility] for more information regarding the patient. 12-point ROS was unremarkable except for what was mentioned above. PMH: as stated above PSH: denies FMHx: denies SHx: denies alcohol, smoking, and recreational drug use Allergies: NKDA PMD: unknown at this time Home medications: spironolactone 50 mg, hydroxychloroquine 300 mg daily, and vitamin D Present on Admission - Present on Admission Any Indicators Present on Admission: No Review of Systems - Review of Systems Review of Systems: except for what was mentioned in HPI Past Patient History - Infectious Disease Hx of Infectious Diseases: None - Past Social History Smoking Status: Unknown If Ever Smoked - CARDIAC Hx Cardiac Disorders: No - PULMONARY Hx Respiratory Disorders: No - HEMATOLOGICAL/ONCOLOGICAL Hx Cirrhosis: Yes (splenomegally and varices) - MUSCULOSKELETAL/RHEUMATOLOGICAL Hx Arthritis: Yes - GASTROINTESTINAL Other/Comment: rt renal calculus - PSYCHIATRIC Hx Psychophysiologic Disorder: No Hx Substance Use: No - ANESTHESIA Hx Anesthesia: No Hx Anesthesia Reactions: No Meds Allergies/Adverse Reactions: Allergies Allergy/AdvReac Type Severity Reaction Status Date / Time No Known Allergies Allergy Verified 08/22/17 12:17 Physical Exam - Constitutional Appears: Toxic, Unkempt - Head Exam Head Exam: ATRAUMATIC, NORMAL INSPECTION, NORMOCEPHALIC - Eye Exam Eye Exam: EOMI, PERRL - ENT Exam ENT Exam: Mucous Membranes Dry - Respiratory Exam Respiratory Exam: Rales, Rhonchi - Cardiovascular Exam Cardiovascular Exam: REGULAR RHYTHM, RRR - GI/Abdominal Exam GI & Abdominal Exam: Distended (mildly), Soft, Tenderness - Extremities Exam Extremities exam: Positive for: full ROM - Neurological Exam Neurological exam: Alert, CN II-XII Intact, Oriented x3 - Skin Skin Exam: Dry, Intact Results - Vital Signs Recent Vital Signs: Last Vital Signs Temp 98.2 F 09/03/18 13:53 Pulse 80 09/03/18 13:53 Resp 18 09/03/18 13:53 BP 102/75 09/03/18 13:53 Pulse Ox 95 09/03/18 13:53 - Labs Result Diagrams: 09/03/18 15:07 09/03/18 15:07 Labs: Laboratory Results - last 24 hr 09/03/18 09/03/18 09/03/18 15:07 15:07 15:07 WBC 1.6 L* RBC 3.59 Hgb 11.1 L Hct 32.5 L MCV 90.5 MCH 30.9 MCHC 34.2 RDW 14.6 H Plt Count 26 L* Neut % (Auto) 55.0 Lymph % (Auto) 29.6 [place] % (Auto) 14.2 H Eos % (Auto) 1.2 L Baso % (Auto) 0.0 Lymph # (Auto) 0.5 L [place] # (Auto) 0.2 Eos # (Auto) 0.0 Baso # (Auto) 0.00 Absolute Neuts (auto) 0.89 L Neutrophils % (Manual) 64 Band Neutrophils % 3 H Lymphocytes % (Manual) 26 Monocytes % (Manual) 7 H Platelet Evaluation Low PT 18.8 H INR 1.69 APTT 34.6 Sodium Potassium Chloride Carbon Dioxide Anion Gap BUN Creatinine Est GFR ( Amer) Est GFR (Non-Af Amer) Random Glucose Calcium Magnesium Total Bilirubin AST ALT Alkaline Phosphatase Total Protein Albumin Globulin Albumin/Globulin Ratio Lipase Urine Color Dark yellow Urine Appearance Clear Urine pH 6.5 Ur Specific [place] 1.020 Urine Protein Trace H Urine Glucose (UA) Negative Urine Ketones Negative Urine Blood Large H Urine Nitrate Negative Urine Bilirubin Small H Urine Urobilinogen 2.0 H Ur Leukocyte Esterase Trace H Urine RBC 5 - 10 H Urine WBC 1 - 3 Ur Epithelial Cells 4 - 5 Urine Bacteria Small Influenza Typ A,B (EIA) 09/03/18 09/03/18 15:07 15:07 WBC RBC Hgb Hct MCV MCH MCHC RDW Plt Count Neut % (Auto) Lymph % (Auto) [place] % (Auto) Eos % (Auto) Baso % (Auto) Lymph # (Auto) [place] # (Auto) Eos # (Auto) Baso # (Auto) Absolute Neuts (auto) Neutrophils % (Manual) Band Neutrophils % Lymphocytes % (Manual) Monocytes % (Manual) Platelet Evaluation PT INR APTT Sodium 133 Potassium 3.5 L Chloride 100 Carbon Dioxide 26 Anion Gap 10 BUN 13 Creatinine 0.7 Est GFR ( Amer) > 60 Est GFR (Non-Af Amer) > 60 Random Glucose 79 Calcium 8.1 L Magnesium 2.0 Total Bilirubin 2.4 H AST 95 H D ALT 38 Alkaline Phosphatase 93 Total Protein 7.5 Albumin 3.0 Globulin 4.5 Albumin/Globulin Ratio 0.7 L Lipase 179 Urine Color Urine Appearance Urine pH Ur Specific [place] Urine Protein Urine Glucose (UA) Urine Ketones Urine Blood Urine Nitrate Urine Bilirubin Urine Urobilinogen Ur Leukocyte Esterase Urine RBC Urine WBC Ur Epithelial Cells Urine Bacteria Influenza Typ A,B (EIA) Negative for flu a/b Assessment & Plan - Assessment and Plan (Free Text) Assessment: 63 year old Yi speaking female with past medical history of hepatosplenomegaly, liver cirrhosis due to unknown cause, recurrent UTI, and splenomegaly presents with epigastric abdominal pain radiating to the left side of the lumbar area and to the left scapula. Plan: #Possible Pneumonia #Flu-Like Symptoms -cxr impression: Mild left basilar opacities may reflect pneumonia -f/u blood cx, procalcitonin, sputum cx, lactate, tb quantiferonm, sputum AFB -flu negative -treat empirically with rocephin 1g ivpb q24h -consulted infectious disease, Dr Koehler #Pancytopenia -consulted heme/onc, Dr Reeves -f/u direct bilirubin, HIV, iron studies, b12/folate, peripheral blood smear, manual plt count -neutropenic precautions -per family, patient was previously advised to have a splenectomy -will hold off on tranfusing FFP at this time - hgb 11, monitor with repeat h/h -type and screen #Hepatic Steatosis #ascites -liver dysfunction self reported to be from prior medication use to treat her rheumatoid arthritis -strong fam hx of liver disease from various causes -CT abd/pelvis w/ contrast shows "Nodular hepatic contour. Hypoattenuation of the liver compatible with hepatic steatosis" -f/u abdominal ultrasound -f/u hep panel, AFP -consulted GI, Dr Umanzor #Small Bowel Thickening #Rectal wall Thickening -patient not having diarrhea or emesis -CT abd/pelvis w/ contrast shows "Small bowel wall thickening. Rectal wall thickening." -f/u CA-125, CA 19-9, CEA -will need colonoscopy at some point to exclude possibility of malignant neoplasm -treat empirically with flagyl 500mg ivpb q8h -consulted GI, Dr Umanzor #Esophageal varices -CT abd/pelvis w/ contrast shows "Esophageal varices. Upper abdominal varices including splenic" -propranolol 10mg po q8h with holding parameters -protonix 40mg ivp q12h -consulted GI, Dr Umanzor #Marked gallbladder wall thickening/pericholecystic edema -CT abd/pelvis w/ contrast shows "Marked gallbladder wall thickening/pericholecystic edema. No calcified gallstones identified." -f/u abdominal ultrasound -surgery consulted, Dr Costa #Hematuria -likely 2/2 to thrombocytopenia -hgb 11, monitor with repeat h/h #UTI -recently treated for UTI in [facility] however patient did not complete tx course -UA showing trace leukocyte esterase -f/u urine cx, procalcitonin -consulted infectious disease, Dr Koehler #Small right effusion -f/u echo #Rhematoid Arthritis -hold home med hydroxychloroquine 200mg po qd for now -f/u carmen w/ reflex, crp, esr #Severe splenomegaly -per family, patient was previously advised to have a splenectomy #Hypokalemia -repleted with k-dur 40mg po -will monitor #Wedge Compression Fracture L1 -f/u vitamin d level -continue home vitamin d3 100mg po qd #12 mm probable right ovarian cyst -f/u AFP, CEA-125 GI prophylaxis: protonix 40 mg DVT prophylaxis: SCD - Date & Time Date: 09/04/18 Time: 01:00 <Alfa Wren - Last Filed: 09/05/18 06:23> Results - Vital Signs Recent Vital Signs: Last Vital Signs Temp 99.8 F H 09/05/18 00:01 Pulse 65 09/05/18 02:00 Resp 20 09/05/18 00:01 BP 106/72 09/05/18 00:01 Pulse Ox 100 09/05/18 00:01 - Labs Result Diagrams: 09/04/18 09:00 09/04/18 09:00 Labs: Laboratory Results - last 24 hr 09/03/18 09/03/18 09/03/18 19:00 19:00 19:00 WBC RBC Hgb Hct MCV MCH MCHC RDW Plt Count Neut % (Auto) Lymph % (Auto) [place] % (Auto) Eos % (Auto) Baso % (Auto) Lymph # (Auto) [place] # (Auto) Eos # (Auto) Baso # (Auto) Absolute Neuts (auto) Sodium Potassium Chloride Carbon Dioxide Anion Gap BUN Creatinine Est GFR ( Amer) Est GFR (Non-Af Amer) Random Glucose Calcium Ferritin 483.0 Total Bilirubin AST ALT Alkaline Phosphatase C-React Prot High Sens > 15.00 H Total Protein Albumin Globulin Albumin/Globulin Ratio Alpha Fetoprotein Carcinoembryonic Ag CA 19-9 Antigen CA 125 Antigen Vitamin B12 724 25-OH Vitamin D Total Folate 9.2 Procalcitonin 0.67 H Blood Type Blood Type Confirm Antibody Screen BBK History Checked 09/04/18 09/04/18 09/04/18 09:00 09:00 09:00 WBC 1.5 L* RBC 3.76 Hgb 11.4 L Hct 34.0 L MCV 90.4 MCH 30.3 MCHC 33.5 RDW 15.0 H Plt Count 25 L* Neut % (Auto) 51.6 Lymph % (Auto) 33.6 [place] % (Auto) 12.8 H Eos % (Auto) 0.7 L Baso % (Auto) 1.3 Lymph # (Auto) 0.5 L [place] # (Auto) 0.2 Eos # (Auto) 0.0 Baso # (Auto) 0.02 Absolute Neuts (auto) 0.77 L Sodium Potassium Chloride Carbon Dioxide Anion Gap BUN Creatinine Est GFR ( Amer) Est GFR (Non-Af Amer) Random Glucose Calcium Ferritin Total Bilirubin AST ALT Alkaline Phosphatase C-React Prot High Sens Total Protein Albumin Globulin Albumin/Globulin Ratio Alpha Fetoprotein 3.4 Carcinoembryonic Ag CA 19-9 Antigen CA 125 Antigen Vitamin B12 25-OH Vitamin D Total 49.2 Folate Procalcitonin Blood Type O POSITIVE Blood Type Confirm Antibody Screen Negative BBK History Checked No verified bt 09/04/18 09/04/18 09/04/18 09:00 09:00 09:45 WBC RBC Hgb Hct MCV MCH MCHC RDW Plt Count Neut % (Auto) Lymph % (Auto) [place] % (Auto) Eos % (Auto) Baso % (Auto) Lymph # (Auto) [place] # (Auto) Eos # (Auto) Baso # (Auto) Absolute Neuts (auto) Sodium 134 Potassium 4.3 Chloride 104 Carbon Dioxide 23 Anion Gap 11 BUN 9 Creatinine 0.6 L Est GFR ( Amer) > 60 Est GFR (Non-Af Amer) > 60 Random Glucose 95 Calcium 8.1 L Ferritin Total Bilirubin 2.0 H AST 79 H ALT 37 Alkaline Phosphatase 82 C-React Prot High Sens Total Protein 7.1 Albumin 2.8 L Globulin 4.3 Albumin/Globulin Ratio 0.7 L Alpha Fetoprotein Carcinoembryonic Ag 2.9 CA 19-9 Antigen 38.5 H CA 125 Antigen 38.7 H Vitamin B12 25-OH Vitamin D Total Folate Procalcitonin Blood Type Blood Type Confirm O POSITIVE Antibody Screen BBK History Checked Attending/Attestation - Attestation I have personally seen and examined this patient.: Yes I have fully participated in the care of the patient.: Yes I have reviewed all pertinent clinical information: Yes
[2018-09-03 20:37] LABS: IRON 22 ug/dL (45-180)
[2018-09-03 20:47] LABS: % IRON SATURATION 10 % (20-55); TOTAL IRON BINDING CAPACITY 217 ug/dL (265-497)
[2018-09-03] MEDS ORDERED: metroNIDAZOLE IV 500 mg/100 ml 500 MG/100 ML BAG IVPB SCH (22:00)
[2018-09-03 23:39] VITALS: BMI 31.8
--- NOTE | 2018-09-04 07:43 | CARD ---
APPROVED REPORT Date of service: 09/03/2018 EKG Measurement Heart [id number] <Conclusion> Normal sinus rhythm Left axis deviation Abnormal ECG
[2018-09-04 09:30] LABS: BASO # 0.02 K/mm3 (0.0-2.0); BASO % 1.3 % (0.0-3.0); EOS % 0.7 % (1.5-5.0); HEMOGLOBIN 11.4 g/dL (12.0-16.0); LYMPH # 0.5 (1.2-3.4); LYMPH % 33.6 % (22.0-35.0); MEAN CELL VOLUME 90.4 fl (80.0-105.0); MEAN CORPUSCULAR HEMOGLOBIN 30.3 pg (25.0-35.0); MEAN CORPUSCULAR HGB CONC 33.5 g/dl (31.0-37.0); MONO # 0.2 (0.1-0.6); MONO % 12.8 % (1.0-6.0); RBC 3.76 10^6/uL (3.5-6.1)
[2018-09-04 09:33] LABS: PLATELET COUNT 25 10^3/uL (120.0-450.0); WHITE BLOOD COUNT 1.5 10^3/uL (4.5-11.0)
[2018-09-04 09:48] LABS: ALB/GLOB RATIO 0.7 (1.1-1.8); ALBUMIN 2.8 g/dL (3.0-4.8); ALT/SGPT 37 U/L (7-56); AST/SGOT 79 U/L (14-36); BLOOD UREA NITROGEN 9 mg/dL (7-21); CALCIUM 8.1 mg/dL (8.4-10.5); GFR NON-AFRICAN AMERICAN > 60
[2018-09-04] MEDS ORDERED: cefTRIAXone 1 gm 1 GM/100 ML BAG IVPB SCH (10:00)
[2018-09-04] MEDS: levoFLOXacin 750 mg in D5W 150 ML BAG IVPB SCH (10:59)
[2018-09-04] MEDS: Vancomycin 1gm in NS 250ml 1 GM/250 ML BAG IVPB SCH ×2 (11:00→21:46)
[2018-09-04] MEDS: Cholecalciferol 1,000 INTLU TAB PO SCH (11:00)
--- NOTE | 2018-09-04 11:03 | US ---
HISTORY: r/o cholecystitis/cholelithiasis COMPARISON: CT abdomen pelvis with contrast performed 09/03/18 TECHNIQUE: Sonographic evaluation of the abdomen. FINDINGS: LIVER: Measures 14.2 cm in sagittal dimension. Echogenic liver may be seen in setting of hepatic parenchymal disease or fatty infiltration. Nodular hepatic contour. Small perihepatic ascites. No focal hepatic mass identified. The main portal vein appears patent with normal directional flow. No intrahepatic bile duct dilatation. GALLBLADDER: No gallstones. Gallbladder wall thickening/pericholecystic edema measuring approximately 7 mm. Negative sonographic Lemons's sign as assessed by the field attendant. COMMON BILE DUCT: Measures 6 mm. PANCREAS: Not well visualized. RIGHT KIDNEY: Measures 10.1 x 4.0 x 4.8 cm. No obstructing calculus or hydronephrosis identified. LEFT KIDNEY: Measures 12.1 x 4.3 x 3.9 cm. No obstructing calculus or hydronephrosis identified SPLEEN: Measures approximately 18.3 cm. AORTA: Limited views appear unremarkable. IVC: Limited views appear unremarkable. OTHER FINDINGS: None. IMPRESSION: Echogenic liver may be seen in setting of hepatic parenchymal disease or fatty infiltration. Nodular hepatic contour with seen in setting of cirrhosis. Small perihepatic ascites. Massive splenomegaly. Gallbladder wall thickening/edema measuring approximately 7 mm. No evidence gallstones. Preliminary impression was provided by [employer].
--- NOTE | 2018-09-04 12:26 | CON ---
DATE OF CONSULTATION: 09/04/2018 The patient is seen earlier today in 269, bed 2. CHIEF COMPLAINT: Fever of 102 x1 day duration. HISTORY OF PRESENT ILLNESS: This is a 63-year-old female, who has a history of cirrhosis, splenomegaly, varices, history of rheumatoid arthritis, history of right renal calculus, history of urinary tract infection, last one 2 months ago. and who was admitted with weakness, found to have a fever and pneumonia. Infectious Disease consultation requested. REVIEW OF SYSTEMS: Reveals the patient has some abdominal pain. There is an episode of diarrhea. No nausea, vomiting now, and no headaches, and there is cough, which is productive, yellowish in color, and abdominal pain is more in the right side. PAST MEDICAL HISTORY: Significant for cirrhosis with splenomegaly and varices. Etiology of cirrhosis of unclear. The patient with rheumatoid arthritis, right renal calculus and recurrent urinary tract infection last one 2 months ago. PAST SURGICAL HISTORY: Noncontributory. ALLERGIES: THE PATIENT HAS NO KNOWN ALLERGIES TO ANY ANTIBIOTICS. MEDICATIONS: Medications at home include hydroxychloroquine, spironolactone, and vitamin D3. PHYSICAL EXAMINATION: GENERAL: The patient is in bed, answering questions. VITAL SIGNS: Temperature of 102, blood pressure is 102/60, respiratory rate of 19, and a heart rate of 84. HEENT: Examination of HEENT is unremarkable. NECK: Supple. LUNGS: Have decreased breath sounds. HEART: Normal S1, S2. ABDOMEN: Soft, nontender. No rebound. No guarding or masses. LABORATORY DATA: Laboratory examination reveals the patient to have, white count is down to 1.6, hemoglobin of 11, platelets of 26,000. The patient has absolute neutrophil count of 0.77. Coagulation reveals an INR of 1.69. PT is 18. Chemistries revealed the patient's bilirubin is 2.4, AST is 95, ALT is 38, alk phos is 93. Lipase is normal. BUN and creatinine are normal. Urinalysis is reviewed, and the patient's influenza is negative. The patient's chest x-ray is reported of left pneumonia. CT scan of the abdomen is reviewed. The patient also had an ultrasound of the abdomen, which results are not available. ASSESSMENT AND PLAN: A 63-year-old female, admitted with severe sepsis, neutropenic febrile patient with healthcare-associated pneumonia, pancytopenia, must rule out underlying gallbladder disease. We will treat the patient with vanco, meropenem, Levaquin pending blood cultures, urine culture, sputum cultures, and nasal MRSA screen, procalcitonin, urine for Legionella antigen, and vanco, meropenem, and Levaquin pending initial workup including echo results and culture results, and we will make further recommendation. Because of her age of 63, we will also order an HIV test. Doug Koehler MD [facility] # [id number]
--- NOTE | 2018-09-04 13:33 | CP.PCM.CON ---
<Jorge Solorio - Last Filed: 09/04/18 15:44> History of Present Illness - History of Present Illness History of Present Illness: Initial GI Consult Note Sandra Rivers is a 63F w/ hx of hepatosplenomegaly, liver cirrhosis due to unknown cause, recurrent UTI, and splenomegaly presents with epigastric abdominal pain radiating to the left side of the lumbar area and to the left scapula. Pt also complaining or fever, productive cough. t is complaining of shap RUQ pain radiating to her back. Denies any aggravating or alleviating factors. Pt recently arrived from [facility] 1 week prior, where she notes being treated for UTI with abx. Pts primary resident is in [place] and she is visiting her Son in [place]. Pt has a previous diagnosis of Cirrhosis and being treated at [facility] in [place]. Pt does not know the etiology of the cirrhosis but believes it may be 2/2 methotrexate (for RA). Pt is currently only taking spironolactone. CT in the ER revealed non-specefic rectal and small bowel wall thickening, esophageal varicies, GB wall thickening w/ some pericolic fluid and inflammatory changes. PMH: hepatosplenomegaly, Cirrhosis of unknown etiology, RA PSH: denies Social: denies ETOH, smoking and illicit drugs Family Hx: Denies any family hx of GI malignancy Endo Hx: unknown ROS: 12 point ROS conducted, neg other than above Past Patient History - Infectious Disease Hx of Infectious Diseases: None - Past Social History Smoking Status: Unknown If Ever Smoked - CARDIAC Hx Cardiac Disorders: No - PULMONARY Hx Respiratory Disorders: No - HEMATOLOGICAL/ONCOLOGICAL Hx Cirrhosis: Yes (splenomegally and varices) - MUSCULOSKELETAL/RHEUMATOLOGICAL Hx Arthritis: Yes - GASTROINTESTINAL Other/Comment: rt renal calculus - PSYCHIATRIC Hx Psychophysiologic Disorder: No Hx Substance Use: No - ANESTHESIA Hx Anesthesia: No Hx Anesthesia Reactions: No Meds Allergies/Adverse Reactions: Allergies Allergy/AdvReac Type Severity Reaction Status Date / Time No Known Allergies Allergy Verified 08/22/17 12:17 - Medications Medications: Current Medications Cholecalciferol (Vitamin D) 1,000 intlu PO DAILY [facility] Last Admin: 09/04/18 11:00 Dose: 1,000 intlu Meropenem (Merrem Iv 1 Gm Premix) 1 gm in 50 mls @ 100 mls/hr IVPB Q8 [facility]; Protocol Stop: 09/13/18 14:01 Vancomycin HCl (Vancomycin 1gm) 1 gm in 250 mls @ 167 mls/hr IVPB Q12H [facility]; Protocol Stop: 09/13/18 10:16 Last Admin: 09/04/18 11:00 Dose: 167 mls/hr Levofloxacin/Dextrose (Levaquin 750mg) 750 mg IVPB DAILY [facility]; Protocol Stop: 09/13/18 10:16 Last Admin: 09/04/18 10:59 Dose: 750 mg Pantoprazole Sodium (Protonix Inj) 40 mg IVP Q12 [facility] Last Admin: 09/04/18 11:00 Dose: 40 mg Propranolol HCl (Inderal) 10 mg PO TID [facility] Last Admin: 09/04/18 10:54 Dose: 10 mg Physical Exam - Constitutional Appears: No Acute Distress, Chronically Ill - Head Exam Head Exam: ATRAUMATIC, NORMOCEPHALIC - Eye Exam Eye Exam: Normal appearance - ENT Exam ENT Exam: Mucous Membranes Moist - Neck Exam Neck exam: Positive for: Normal Inspection - Respiratory Exam Respiratory Exam: Clear to Auscultation Bilateral, NORMAL BREATHING PATTERN. absent: Rales, Rhonchi, Wheezes, Respiratory Distress - Cardiovascular Exam Cardiovascular Exam: REGULAR RHYTHM, +S1, +S2 - GI/Abdominal Exam GI & Abdominal Exam: Normal Bowel Sounds, Soft, Tenderness (RUQ). absent: Diminished Bowel Sounds, Distended, Firm, Guarding, Hernia, Organomegaly, Pulsatile Mass, Rebound, Rigid - Extremities Exam Extremities exam: Negative for: joint swelling, pedal edema - Neurological Exam Neurological exam: Alert, Oriented x3 - Psychiatric Exam Psychiatric exam: Normal Affect, Normal Mood - Skin Skin Exam: Dry, Intact, Normal Color, Warm Results - Vital Signs Recent Vital Signs: Last Vital Signs Temp 100.8 F H 09/04/18 12:00 Pulse 70 09/04/18 12:00 Resp 20 09/04/18 12:00 BP 90/50 L 09/04/18 12:00 Pulse Ox 95 09/04/18 05:58 - Labs Result Diagrams: 09/04/18 09:00 09/04/18 09:00 Labs: Laboratory Results - last 24 hr 09/03/18 09/03/18 09/03/18 15:07 15:07 15:07 WBC 1.6 L* RBC 3.59 Hgb 11.1 L Hct 32.5 L MCV 90.5 MCH 30.9 MCHC 34.2 RDW 14.6 H Plt Count 26 L* Manual Plt Count Neut % (Auto) 55.0 Lymph % (Auto) 29.6 Haines % (Auto) 14.2 H Eos % (Auto) 1.2 L Baso % (Auto) 0.0 Lymph # (Auto) 0.5 L Haines # (Auto) 0.2 Eos # (Auto) 0.0 Baso # (Auto) 0.00 Absolute Neuts (auto) 0.89 L Neutrophils % (Manual) 64 Band Neutrophils % 3 H Lymphocytes % (Manual) 26 Monocytes % (Manual) 7 H Platelet Evaluation Low ESR PT 18.8 H INR 1.69 APTT 34.6 Sodium Potassium Chloride Carbon Dioxide Anion Gap BUN Creatinine Est GFR ( Amer) Est GFR (Non-Af Amer) Random Glucose Lactic Acid Calcium Magnesium Iron TIBC % Saturation Total Bilirubin Direct Bilirubin AST ALT Alkaline Phosphatase Total Protein Albumin Globulin Albumin/Globulin Ratio Lipase Carcinoembryonic Ag Urine Color Dark yellow Urine Appearance Clear Urine pH 6.5 Ur Specific [place] 1.020 Urine Protein Trace H Urine Glucose (UA) Negative Urine Ketones Negative Urine Blood Large H Urine Nitrate Negative Urine Bilirubin Small H Urine Urobilinogen 2.0 H Ur Leukocyte Esterase Trace H Urine RBC 5 - 10 H Urine WBC 1 - 3 Ur Epithelial Cells 4 - 5 Urine Bacteria Small Influenza Typ A,B (EIA) Blood Type Blood Type Confirm Antibody Screen BBK History Checked 09/03/18 09/03/18 09/03/18 15:07 15:07 19:00 WBC RBC Hgb Hct MCV MCH MCHC RDW Plt Count Manual Plt Count Neut % (Auto) Lymph % (Auto) Haines % (Auto) Eos % (Auto) Baso % (Auto) Lymph # (Auto) Haines # (Auto) Eos # (Auto) Baso # (Auto) Absolute Neuts (auto) Neutrophils % (Manual) Band Neutrophils % Lymphocytes % (Manual) Monocytes % (Manual) Platelet Evaluation ESR PT INR APTT Sodium 133 Potassium 3.5 L Chloride 100 Carbon Dioxide 26 Anion Gap 10 BUN 13 Creatinine 0.7 Est GFR ( Amer) > 60 Est GFR (Non-Af Amer) > 60 Random Glucose 79 Lactic Acid Calcium 8.1 L Magnesium 2.0 Iron TIBC % Saturation Total Bilirubin 2.4 H Direct Bilirubin 1.2 H AST 95 H D ALT 38 Alkaline Phosphatase 93 Total Protein 7.5 Albumin 3.0 Globulin 4.5 Albumin/Globulin Ratio 0.7 L Lipase 179 Carcinoembryonic Ag Urine Color Urine Appearance Urine pH Ur Specific [place] Urine Protein Urine Glucose (UA) Urine Ketones Urine Blood Urine Nitrate Urine Bilirubin Urine Urobilinogen Ur Leukocyte Esterase Urine RBC Urine WBC Ur Epithelial Cells Urine Bacteria Influenza Typ A,B (EIA) Negative for flu a/b Blood Type Blood Type Confirm Antibody Screen BBK History Checked 09/03/18 09/03/18 09/03/18 19:00 19:00 20:40 WBC RBC Hgb Hct MCV MCH MCHC RDW Plt Count Manual Plt Count 27 L* Neut % (Auto) Lymph % (Auto) Haines % (Auto) Eos % (Auto) Baso % (Auto) Lymph # (Auto) Haines # (Auto) Eos # (Auto) Baso # (Auto) Absolute Neuts (auto) Neutrophils % (Manual) Band Neutrophils % Lymphocytes % (Manual) Monocytes % (Manual) Platelet Evaluation ESR 76 H PT INR APTT Sodium Potassium Chloride Carbon Dioxide Anion Gap BUN Creatinine Est GFR ( Amer) Est GFR (Non-Af Amer) Random Glucose Lactic Acid Calcium Magnesium Iron 22 L TIBC 217 L % Saturation 10 L Total Bilirubin Direct Bilirubin AST ALT Alkaline Phosphatase Total Protein Albumin Globulin Albumin/Globulin Ratio Lipase Carcinoembryonic Ag Urine Color Urine Appearance Urine pH Ur Specific [place] Urine Protein Urine Glucose (UA) Urine Ketones Urine Blood Urine Nitrate Urine Bilirubin Urine Urobilinogen Ur Leukocyte Esterase Urine RBC Urine WBC Ur Epithelial Cells Urine Bacteria Influenza Typ A,B (EIA) Blood Type Blood Type Confirm Antibody Screen BBK History Checked 09/03/18 09/04/18 09/04/18 21:05 09:00 09:00 WBC 1.5 L* RBC 3.76 Hgb 11.4 L Hct 34.0 L MCV 90.4 MCH 30.3 MCHC 33.5 RDW 15.0 H Plt Count 25 L* Manual Plt Count Neut % (Auto) 51.6 Lymph % (Auto) 33.6 Haines % (Auto) 12.8 H Eos % (Auto) 0.7 L Baso % (Auto) 1.3 Lymph # (Auto) 0.5 L Haines # (Auto) 0.2 Eos # (Auto) 0.0 Baso # (Auto) 0.02 Absolute Neuts (auto) 0.77 L Neutrophils % (Manual) Band Neutrophils % Lymphocytes % (Manual) Monocytes % (Manual) Platelet Evaluation ESR PT INR APTT Sodium Potassium Chloride Carbon Dioxide Anion Gap BUN Creatinine Est GFR ( Amer) Est GFR (Non-Af Amer) Random Glucose Lactic Acid 1.1 Calcium Magnesium Iron TIBC % Saturation Total Bilirubin Direct Bilirubin AST ALT Alkaline Phosphatase Total Protein Albumin Globulin Albumin/Globulin Ratio Lipase Carcinoembryonic Ag Urine Color Urine Appearance Urine pH Ur Specific [place] Urine Protein Urine Glucose (UA) Urine Ketones Urine Blood Urine Nitrate Urine Bilirubin Urine Urobilinogen Ur Leukocyte Esterase Urine RBC Urine WBC Ur Epithelial Cells Urine Bacteria Influenza Typ A,B (EIA) Blood Type O POSITIVE Blood Type Confirm Antibody Screen Negative BBK History Checked No verified bt 09/04/18 09/04/18 09/04/18 09:00 09:00 09:45 WBC RBC Hgb Hct MCV MCH MCHC RDW Plt Count Manual Plt Count Neut % (Auto) Lymph % (Auto) Haines % (Auto) Eos % (Auto) Baso % (Auto) Lymph # (Auto) Haines # (Auto) Eos # (Auto) Baso # (Auto) Absolute Neuts (auto) Neutrophils % (Manual) Band Neutrophils % Lymphocytes % (Manual) Monocytes % (Manual) Platelet Evaluation ESR PT INR APTT Sodium 134 Potassium 4.3 Chloride 104 Carbon Dioxide 23 Anion Gap 11 BUN 9 Creatinine 0.6 L Est GFR ( Amer) > 60 Est GFR (Non-Af Amer) > 60 Random Glucose 95 Lactic Acid Calcium 8.1 L Magnesium Iron TIBC % Saturation Total Bilirubin 2.0 H Direct Bilirubin AST 79 H ALT 37 Alkaline Phosphatase 82 Total Protein 7.1 Albumin 2.8 L Globulin 4.3 Albumin/Globulin Ratio 0.7 L Lipase Carcinoembryonic Ag 2.9 Urine Color Urine Appearance Urine pH Ur Specific [place] Urine Protein Urine Glucose (UA) Urine Ketones Urine Blood Urine Nitrate Urine Bilirubin Urine Urobilinogen Ur Leukocyte Esterase Urine RBC Urine WBC Ur Epithelial Cells Urine Bacteria Influenza Typ A,B (EIA) Blood Type Blood Type Confirm O POSITIVE Antibody Screen BBK History Checked Assessment & Plan - Assessment and Plan (Free Text) Assessment: Sandra Rivers is a 63F w/ hx of hepatosplenomegaly, liver cirrhosis due to unknown cause, recurrent UTI, and splenomegaly presents with epigastric abdominal pain radiating to the left side of the lumbar area and to the left scapula Cirrhosis etiology unknown, MELD-na 09/03/3018:20 Acute Cholecystitis? Esophageal Varicies Hepatosplenomegaly Neutropenia PNA? Plan: -Will not persue Liver w/u at this time, as pt is bring followed in [place] -Will need records from environmental protection forester -no evidence of Acities on CT -continue abx as per ID -onsult hem/onc -Recommend HIDA-Surgery on board -Neutropenic precautions -diet as tolerated -will continue to follow D/W Dr. Umanzor <La Umanzor V - Last Filed: 09/04/18 22:34> Meds - Medications Medications: Current Medications Albuterol/Ipratropium (Duoneb 3 Mg/0.5 Mg (3 Ml) Ud) 3 ml IH [id number] [facility] Cholecalciferol (Vitamin D) 1,000 intlu PO DAILY [facility] Last Admin: 09/04/18 11:00 Dose: 1,000 intlu Meropenem (Merrem Iv 1 Gm Premix) 1 gm in 50 mls @ 100 mls/hr IVPB Q8 [facility]; Protocol Stop: 09/13/18 14:01 Last Admin: 09/04/18 21:46 Dose: 100 mls/hr Vancomycin HCl (Vancomycin 1gm) 1 gm in 250 mls @ 167 mls/hr IVPB Q12H [facility]; Protocol Stop: 09/13/18 10:16 Last Admin: 09/04/18 21:46 Dose: 167 mls/hr Levofloxacin/Dextrose (Levaquin 750mg) 750 mg IVPB DAILY [facility]; Protocol Stop: 09/13/18 10:16 Last Admin: 09/04/18 10:59 Dose: 750 mg Pantoprazole Sodium (Protonix Inj) 40 mg IVP Q12 [facility] Last Admin: 09/04/18 21:46 Dose: 40 mg Propranolol HCl (Inderal) 10 mg PO TID [facility] Last Admin: 09/04/18 17:28 Dose: Not Given Results - Vital Signs Recent Vital Signs: Last Vital Signs Temp 99.3 F 09/04/18 18:00 Pulse 72 09/04/18 18:00 Resp 18 09/04/18 18:00 BP 93/46 L 09/04/18 18:00 Pulse Ox 95 09/04/18 05:58 - Labs Result Diagrams: 09/04/18 09:00 09/04/18 09:00 Labs: Laboratory Results - last 24 hr 09/03/18 09/03/18 09/03/18 19:00 19:00 19:00 WBC RBC Hgb Hct MCV MCH MCHC RDW Plt Count Neut % (Auto) Lymph % (Auto) Haines % (Auto) Eos % (Auto) Baso % (Auto) Lymph # (Auto) Haines # (Auto) Eos # (Auto) Baso # (Auto) Absolute Neuts (auto) Sodium Potassium Chloride Carbon Dioxide Anion Gap BUN Creatinine Est GFR ( Amer) Est GFR (Non-Af Amer) Random Glucose Calcium Ferritin 483.0 Total Bilirubin AST ALT Alkaline Phosphatase C-React Prot High Sens > 15.00 H Total Protein Albumin Globulin Albumin/Globulin Ratio Alpha Fetoprotein Carcinoembryonic Ag CA 19-9 Antigen CA 125 Antigen Vitamin B12 724 25-OH Vitamin D Total Folate 9.2 Procalcitonin 0.67 H Blood Type Blood Type Confirm Antibody Screen BBK History Checked 09/04/18 09/04/18 09/04/18 09:00 09:00 09:00 WBC 1.5 L* RBC 3.76 Hgb 11.4 L Hct 34.0 L MCV 90.4 MCH 30.3 MCHC 33.5 RDW 15.0 H Plt Count 25 L* Neut % (Auto) 51.6 Lymph % (Auto) 33.6 Haines % (Auto) 12.8 H Eos % (Auto) 0.7 L Baso % (Auto) 1.3 Lymph # (Auto) 0.5 L Haines # (Auto) 0.2 Eos # (Auto) 0.0 Baso # (Auto) 0.02 Absolute Neuts (auto) 0.77 L Sodium Potassium Chloride Carbon Dioxide Anion Gap BUN Creatinine Est GFR ( Amer) Est GFR (Non-Af Amer) Random Glucose Calcium Ferritin Total Bilirubin AST ALT Alkaline Phosphatase C-React Prot High Sens Total Protein Albumin Globulin Albumin/Globulin Ratio Alpha Fetoprotein 3.4 Carcinoembryonic Ag CA 19-9 Antigen CA 125 Antigen Vitamin B12 25-OH Vitamin D Total 49.2 Folate Procalcitonin Blood Type O POSITIVE Blood Type Confirm Antibody Screen Negative BBK History Checked No verified bt 09/04/18 09/04/18 09/04/18 09:00 09:00 09:45 WBC RBC Hgb Hct MCV MCH MCHC RDW Plt Count Neut % (Auto) Lymph % (Auto) Haines % (Auto) Eos % (Auto) Baso % (Auto) Lymph # (Auto) Haines # (Auto) Eos # (Auto) Baso # (Auto) Absolute Neuts (auto) Sodium 134 Potassium 4.3 Chloride 104 Carbon Dioxide 23 Anion Gap 11 BUN 9 Creatinine 0.6 L Est GFR ( Amer) > 60 Est GFR (Non-Af Amer) > 60 Random Glucose 95 Calcium 8.1 L Ferritin Total Bilirubin 2.0 H AST 79 H ALT 37 Alkaline Phosphatase 82 C-React Prot High Sens Total Protein 7.1 Albumin 2.8 L Globulin 4.3 Albumin/Globulin Ratio 0.7 L Alpha Fetoprotein Carcinoembryonic Ag 2.9 CA 19-9 Antigen 38.5 H CA 125 Antigen 38.7 H Vitamin B12 25-OH Vitamin D Total Folate Procalcitonin Blood Type Blood Type Confirm O POSITIVE Antibody Screen BBK History Checked Attending/Attestation - Attestation I have personally seen and examined this patient.: Yes I have fully participated in the care of the patient.: Yes I have reviewed all pertinent clinical information: Yes Notes (Text): This is an addendum to GI consult report dictated by the GI Fellow. The patient was seen and examined earlier. Medical records, lab studies, imagings were reviewed. Last 24 hours events reviewed. Agreed with the above treatment plan as outlined in GI Fellow 's notes with the addition of the following Patient's family very at bedside at the time of examination detailed history was again obtained Patient is on neutropenic precautions Gallbladder wall showed significant thickening and also pericholecystic fluid and edema and inflammatory changes noticed more suggestive of acute cholecystitis per radiology appearance Patient does have significant tenderness in the upper abdomen more so in the right upper quadrant area and epigastric area pain Continue antibiotics as per ID HIDA scan 09/04/18 22:31
[2018-09-04] MEDS ORDERED: Cefepime 1gm in NS 100ml 1 GM/100 ML BAG IVPB SCH (14:00)
[2018-09-04 14:18] LABS: FOLATE 9.2 ng/mL
[2018-09-04] MEDS: Meropenem IV 1 gm in NS 1 GM/50 ML BAG IVPB SCH ×2 (14:26→21:46)
[2018-09-04 16:41] LABS: ALPHA FETO PROTEIN 3.4 ng/mL (0.0-7.5)
[2018-09-04] MEDS ORDERED: Albuterol-Ipratrop 3 mg / 0.5 (3 ml) UD IH STA (17:31)
[2018-09-04] MEDS: Albuterol-Ipratrop 3 mg / 0.5 (3 ml) UD IH SCH (20:30)
[2018-09-05] MEDS: Albuterol-Ipratrop 3 mg / 0.5 (3 ml) UD IH SCH ×3 (02:54→20:03)
[2018-09-05] MEDS: Meropenem IV 1 gm in NS 1 GM/50 ML BAG IVPB SCH ×3 (05:27→23:11)
--- NOTE | 2018-09-05 07:31 | CP.PCM.PN ---
<Nikita Marcos - Last Filed: 09/05/18 16:10> Subjective - Date & Time of Evaluation Date of Evaluation: 09/05/18 Time of Evaluation: 07:31 - Subjective Subjective: PGY-1 Medicine Progress note for Dr. Cruz Patient sen and examined at bedside. No acute events overnight. Patient states that her abdominal pain has improved. She denies shortness of breath, chest pain, nausea, vomiting, or any other complaints ath this time. 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 ID #[id number] Objective - Vital Signs/Intake and Output Vital Signs (last 24 hours): Temp Pulse Resp BP Pulse Ox 98.8 F 55 L 20 99/62 L 97 09/05/18 06:00 09/05/18 06:00 09/05/18 06:00 09/05/18 06:00 09/05/18 06:00 Intake and Output: 09/05/18 09/05/18 06:59 18:59 Intake Total 590 Output Total 600 Balance -10 - Medications Medications: Current Medications Albuterol/Ipratropium (Duoneb 3 Mg/0.5 Mg (3 Ml) Ud) 3 ml IH [id number] [facility] Last Admin: 09/05/18 02:54 Dose: Not Given Cholecalciferol (Vitamin D) 1,000 intlu PO DAILY [facility] Last Admin: 09/04/18 11:00 Dose: 1,000 intlu Meropenem (Merrem Iv 1 Gm Premix) 1 gm in 50 mls @ 100 mls/hr IVPB Q8 [facility]; Protocol Stop: 09/13/18 14:01 Last Admin: 09/05/18 05:27 Dose: 100 mls/hr Vancomycin HCl (Vancomycin 1gm) 1 gm in 250 mls @ 167 mls/hr IVPB Q12H [facility]; Protocol Stop: 09/13/18 10:16 Last Admin: 09/04/18 21:46 Dose: 167 mls/hr Levofloxacin/Dextrose (Levaquin 750mg) 750 mg IVPB DAILY [facility]; Protocol Stop: 09/13/18 10:16 Last Admin: 09/04/18 10:59 Dose: 750 mg Pantoprazole Sodium (Protonix Inj) 40 mg IVP Q12 [facility] Last Admin: 09/04/18 21:46 Dose: 40 mg Propranolol HCl (Inderal) 10 mg PO TID [facility] Last Admin: 09/04/18 17:28 Dose: Not Given - Labs Labs: 09/04/18 09:00 09/04/18 09:00 PT 18.8 SECONDS (9.4-12.5) H 09/03/18 15:07 INR 1.69 09/03/18 15:07 APTT 34.6 Seconds (26.9-38.3) 09/03/18 15:07 - Constitutional Appears: Well, Non-toxic, No Acute Distress - Head Exam Head Exam: ATRAUMATIC, NORMAL INSPECTION - Eye Exam Eye Exam: EOMI, Normal appearance Pupil Exam: NORMAL ACCOMODATION, PERRL - ENT Exam ENT Exam: Mucous Membranes Moist - Respiratory Exam Respiratory Exam: Rales. absent: Rhonchi, Wheezes, Respiratory Distress, Stridor - Cardiovascular Exam Cardiovascular Exam: REGULAR RHYTHM, +S1, +S2. absent: Gallop, Rubs, Murmur - GI/Abdominal Exam GI & Abdominal Exam: Soft. absent: Distended, Firm, Guarding, Rigid, Tenderness - Extremities Exam Extremities Exam: absent: Calf Tenderness, Pedal Edema - Neurological Exam Neurological Exam: Alert, Awake, CN II-XII Intact - Psychiatric Exam Psychiatric exam: Normal Affect, Normal Mood - Skin Skin Exam: Dry, Intact, Normal Color, Warm Assessment and Plan - Assessment and Plan (Free Text) Assessment: Patient is a 63 year old female with past medical history of hepatosplenomegaly, liver cirrhosis due to unknown cause, recurrent UTI, and splenomegaly, admitted for pneumonia. Plan: Pneumonia - CXR impression: Mild left basilar opacities may reflect pneumonia - Procalcitonin: 0.67 - Levofloxacin 750mg IV QD (Started 09/04) - Meropenem 1g IV Q8 (Started 09/04) - Vancomycin 1g IV Q12 (Started 09/04) - Blood cx: no growth to date - Sputum cx: normal oral sandro - TB quantiferon, sputum AFB: pending - Influenza: negative - Legionella: pending - Consulted infectious disease, Dr Koehler Pancytopenia - Consulted heme/onc, Dr Reeves - Neutropenic precautions - HIV: negative - Iron studies: Low iron, low TIBC, Low % saturation - B12/folate levels: WNL - Per family, patient was previously advised to have a splenectomy - Will hold off on tranfusing FFP at this time - hgb 11, monitor with repeat h/h - Type and screen Marked gallbladder wall thickening/pericholecystic edema - CT abd/pelvis w/ contrast: Marked gallbladder wall thickening/pericholecystic edema. No calcified gallstones identified. - HIDA scan: normal hepatobiliary tree. Cystic duct is patent. - Abdominal ultrasound: Echogenic liver may be seen in setting of hepatic parenchymal disease or fatty infiltration. Nodular hepatic contour with seen in setting of cirrhosis. Small perihepatic ascites. Massive splenomegaly. Gallbladder wall thickening/edema measuring approximately 7 mm. No evidence gallstones. - Surgery consulted, Dr Costa - No surgical interventions at this time Liver cirrhosis - Liver dysfunction self reported to be from prior medication use to treat her rheumatoid arthritis - Strong fam hx of liver disease from various causes - CT abd/pelvis w/ contrast: Nodular hepatic contour. Hypoattenuation of the liver compatible with hepatic steatosis - Abdominal ultrasound: Echogenic liver may be seen in setting of hepatic parenchymal disease or fatty infiltration. Nodular hepatic contour with seen in setting of cirrhosis. Small perihepatic ascites. Massive splenomegaly. Gallblad lizzette wall thickening/edema measuring approximately 7 mm. No evidence gallstones. - Hepatitis panel:negative - AFP: WNL - consulted GI, Dr Umanzor Small Bowel Thickening - CT abd/pelvis w/ contrast shows small bowel wall thickening. Rectal wall thickening. - CA-125: 38.7 (Normal: 0-35) - CA 19-9: 38.5 (Normal: 0-37) - CEA: WNL - GI consulted, Dr Umanzor - Given a dose of Flagyl Esophageal varices - CT abd/pelvis w/ contrast shows "Esophageal varices. Upper abdominal varices including splenic" - Propranolol 10mg po q8h with holding parameters - Protonix 40mg ivp q12h - GI consulted, Dr Umanzor Hematuria, resolved - Likely 2/2 to thrombocytopenia UTI - Recently treated for UTI in [facility] however patient did not complete tx course - UA showing trace leukocyte esterase - Urine cx: no growth to date - Consulted infectious disease, Dr Koehler Small right pleural effusion - Echo: pending Rhematoid Arthritis - hold home med hydroxychloroquine 200mg po qd for now - carmen, crp, esr: pending Severe splenomegaly - per family, patient was previously advised to have a splenectomy Hx of vitamin D deficiency - Vitamin D level: 49.2 - Continue home medication, vitamin d3 100mg po qd 2 mm probable right ovarian cyst - AFP: WNL - CEA-125:38.7 (Normal: 0-35) GI prophylaxis: protonix 40 mg DVT prophylaxis: SCD Patient seen and case discussed with attending, Dr. Anthony Marcos, PGY-1 <Aramis Cruz - Last Filed: 09/09/18 16:31> Objective - Vital Signs/Intake and Output Vital Signs (last 24 hours): Temp Pulse Resp BP Pulse Ox 98.0 F 84 20 97/62 L 95 09/09/18 06:00 09/09/18 11:07 09/09/18 06:00 09/09/18 11:07 09/09/18 06:00 Intake and Output: 09/09/18 09/09/18 06:59 18:59 Intake Total 1140 Balance 1140 - Labs Labs: 09/09/18 06:20 09/09/18 06:20 PT 19.6 SECONDS (9.4-12.5) H 09/08/18 06:00 INR 1.73 09/08/18 06:00 APTT 34.6 Seconds (26.9-38.3) 09/03/18 15:07 Attending/Attestation - Attestation I have personally seen and examined this patient.: Yes I have fully participated in the care of the patient.: Yes I have reviewed all pertinent clinical information, including history, physical exam and plan: Yes Notes (Text): 09/09/18 16:31 Medical record note made by the resident after discussion with my direction and input after the patient was personally seen and examined by me. I have reviewed the chart and agree that the record accurately reflects by personal performance of the history, physical exam, data review, and medical decision-making, in the course for the patient. I have also personally directed the plan of care.
[2018-09-05 08:57] LABS: HEPATITIS B SURFACE AG Negative (NEGATIVE)
[2018-09-05 09:04] LABS: HEPATITIS A IGM NEGATIVE (NEGATIVE); HEPATITIS B CORE AB NEGATIVE (NEGATIVE)
[2018-09-05 09:13] LABS: HEPATITIS C ANTIBODY NEGATIVE (NEGATIVE)
[2018-09-05 09:15] LABS: BASO # 0.05 K/mm3 (0.0-2.0); BASO % 3.6 % (0.0-3.0); EOS % 2.2 % (1.5-5.0); HEMOGLOBIN 11.3 g/dL (12.0-16.0); LYMPH # 0.6 (1.2-3.4); LYMPH % 41.3 % (22.0-35.0); MEAN CORPUSCULAR HEMOGLOBIN 30.8 pg (25.0-35.0); MEAN CORPUSCULAR HGB CONC 33.8 g/dl (31.0-37.0); MONO # 0.4 (0.1-0.6); MONO % 25.4 % (1.0-6.0); RBC 3.67 10^6/uL (3.5-6.1); RED CELL DISTRIBUTION WIDTH 15.1 % (11.5-14.5)
[2018-09-05 09:19] LABS: PLATELET COUNT 28 10^3/uL (120.0-450.0); WHITE BLOOD COUNT 1.4 10^3/uL (4.5-11.0)
[2018-09-05 09:30] LABS: ALB/GLOB RATIO 0.6 (1.1-1.8); ALBUMIN 2.6 g/dL (3.0-4.8); ALT/SGPT 35 U/L (7-56); AST/SGOT 66 U/L (14-36); BLOOD UREA NITROGEN 10 mg/dL (7-21); CALCIUM 7.9 mg/dL (8.4-10.5); GFR NON-AFRICAN AMERICAN > 60
--- NOTE | 2018-09-05 10:26 | CP.PCM.PN ---
<Anastasiya Wong - Last Filed: 09/05/18 10:28> Subjective - Date & Time of Evaluation Date of Evaluation: 09/05/18 Time of Evaluation: 10:24 - Subjective Subjective: GI progress note for Dr. Alice Wong, PGY-2 Pt seen/examined at bedside with Dr. Umanzor Pt resting comfortably in bed, no current complaints. Abdominal pain has resolved. Objective - Vital Signs/Intake and Output Vital Signs (last 24 hours): Temp Pulse Resp BP Pulse Ox 98.8 F 55 L 20 88/60 L 97 09/05/18 06:00 09/05/18 06:00 09/05/18 06:00 09/05/18 09:03 09/05/18 06:00 Intake and Output: 09/05/18 09/05/18 06:59 18:59 Intake Total 590 Output Total 600 Balance -10 - Medications Medications: Current Medications Albuterol/Ipratropium (Duoneb 3 Mg/0.5 Mg (3 Ml) Ud) 3 ml IH [id number] NOELLE Last Admin: 09/05/18 08:45 Dose: 3 ml Cholecalciferol (Vitamin D) 1,000 intlu PO DAILY NOELLE Last Admin: 09/04/18 11:00 Dose: 1,000 intlu Meropenem (Merrem Iv 1 Gm Premix) 1 gm in 50 mls @ 100 mls/hr IVPB Q8 NOELLE; Protocol Stop: 09/13/18 14:01 Last Admin: 09/05/18 05:27 Dose: 100 mls/hr Vancomycin HCl (Vancomycin 1gm) 1 gm in 250 mls @ 167 mls/hr IVPB Q12H NOELLE; Protocol Stop: 09/13/18 10:16 Last Admin: 09/04/18 21:46 Dose: 167 mls/hr Levofloxacin/Dextrose (Levaquin 750mg) 750 mg IVPB DAILY NOELLE; Protocol Stop: 09/13/18 10:16 Last Admin: 09/04/18 10:59 Dose: 750 mg Pantoprazole Sodium (Protonix Inj) 40 mg IVP Q12 NOELLE Last Admin: 09/04/18 21:46 Dose: 40 mg Propranolol HCl (Inderal) 10 mg PO TID NOELLE Last Admin: 09/05/18 09:03 Dose: Not Given - Labs Labs: 09/05/18 09:00 09/05/18 09:00 PT 18.8 SECONDS (9.4-12.5) H 09/03/18 15:07 INR 1.69 09/03/18 15:07 APTT 34.6 Seconds (26.9-38.3) 09/03/18 15:07 - Constitutional Appears: Non-toxic, No Acute Distress - Head Exam Head Exam: ATRAUMATIC, NORMAL INSPECTION, NORMOCEPHALIC - Eye Exam Eye Exam: EOMI, Normal appearance - ENT Exam ENT Exam: Mucous Membranes Moist, Normal Exam - Neck Exam Neck Exam: Full ROM - Respiratory Exam Respiratory Exam: NORMAL BREATHING PATTERN - Cardiovascular Exam Cardiovascular Exam: REGULAR RHYTHM - GI/Abdominal Exam GI & Abdominal Exam: Soft. absent: Distended (obese), Firm, Guarding, Rigid, Tenderness, Rebound - Extremities Exam Extremities Exam: Normal Inspection - Neurological Exam Neurological Exam: Alert, Awake - Psychiatric Exam Psychiatric exam: Normal Mood - Skin Skin Exam: Dry, Intact, Normal Color, Warm Assessment and Plan - Assessment and Plan (Free Text) Assessment: 63F w/ hx of hepatosplenomegaly, liver cirrhosis due to unknown cause, recurrent UTI, and splenomegaly presents with epigastric abdominal pain radiating to the left side of the lumbar area and to the left scapula- improved, does not currently have abdominal pain Plan: Pt to continue liver w/u in [place] as previously established Continue Abx as per ID Recommend re-starting spironolactone at 50% of normal dose Recommend non selective beta chasity FU heme/onc recs FU HIDA Surgery consulted- no surgical intervention at this time Continue neutropenic precautions Diet as tolerated Will follow D/W Dr. Umanzor <La Umanzor V - Last Filed: 09/05/18 21:21> Objective - Vital Signs/Intake and Output Vital Signs (last 24 hours): Temp Pulse Resp BP Pulse Ox 98.7 F 76 18 102/53 L 97 09/05/18 17:48 09/05/18 18:00 09/05/18 17:48 09/05/18 17:48 09/05/18 06:00 Intake and Output: 09/05/18 09/06/18 18:59 06:59 Intake Total 1230 Output Total 0 Balance 1230 - Medications Medications: Current Medications Albuterol/Ipratropium (Duoneb 3 Mg/0.5 Mg (3 Ml) Ud) 3 ml IH [id number] NOELLE Last Admin: 09/05/18 20:03 Dose: 3 ml Cholecalciferol (Vitamin D) 1,000 intlu PO DAILY NOELLE Last Admin: 09/05/18 10:52 Dose: 1,000 intlu Meropenem (Merrem Iv 1 Gm Premix) 1 gm in 50 mls @ 100 mls/hr IVPB Q8 NOELLE; Protocol Stop: 09/13/18 14:01 Last Admin: 09/05/18 17:05 Dose: 100 mls/hr Vancomycin HCl (Vancomycin 1gm) 1 gm in 250 mls @ 167 mls/hr IVPB Q12H NOELLE; Protocol Stop: 09/13/18 10:16 Last Admin: 09/05/18 10:51 Dose: 167 mls/hr Levofloxacin/Dextrose (Levaquin 750mg) 750 mg IVPB DAILY NOELLE; Protocol Stop: 09/13/18 10:16 Last Admin: 09/05/18 10:51 Dose: 750 mg Pantoprazole Sodium (Protonix Inj) 40 mg IVP Q12 NOELLE Last Admin: 09/05/18 10:51 Dose: 40 mg Propranolol HCl (Inderal) 10 mg PO TID NOELLE Last Admin: 09/05/18 17:06 Dose: Not Given - Labs Labs: 09/05/18 09:00 09/05/18 09:00 PT 18.8 SECONDS (9.4-12.5) H 09/03/18 15:07 INR 1.69 09/03/18 15:07 APTT 34.6 Seconds (26.9-38.3) 09/03/18 15:07 Attending/Attestation - Attestation I have personally seen and examined this patient.: Yes I have fully participated in the care of the patient.: Yes I have reviewed all pertinent clinical information, including history, physical exam and plan: Yes Notes (Text): This is an addendum to GI progress report dictated by Resident. The patient was seen and examined earlier. Medical records, lab studies, imagings were reviewed. Last 24 hours events reviewed. Agreed with the above treatment plan as outlined in Resident 's notes with the addition of the following HIDA scan was reviewed which showed prompt visualization On examination abdomen soft there is no significant improvement of the right upper quadrant tenderness Chest x-ray was reviewed has bibasilar opacities suggestive of pneumonia Complete antibiotics as per ID Requested records from [facility] Patient did have a small ascites patient has been on Aldactone 50 mg daily We will start Aldactone 25 mg in the a.m. we will titrate the dose based on clinical response 09/05/18 21:17
[2018-09-05] MEDS: Vancomycin 1gm in NS 250ml 1 GM/250 ML BAG IVPB SCH ×2 (10:51→21:14)
[2018-09-05] MEDS: levoFLOXacin 750 mg in D5W 150 ML BAG IVPB SCH (10:51)
[2018-09-05] MEDS: Cholecalciferol 1,000 INTLU TAB PO SCH (10:52)
--- NOTE | 2018-09-05 11:54 | PN ---
DATE: 09/05/2018 SUBJECTIVE: The patient is in bed in no acute distress, nontoxic. No fevers. PHYSICAL EXAMINATION: VITAL SIGNS: Temperature is 98, blood pressure is 100/60, respiratory rate of 20. HEENT: Unremarkable. NECK: Supple. LUNGS: Decreased breath sounds. HEART: Normal, S1 and S2. ABDOMEN: Soft, nontender. LABORATORY DATA: Examination reveals the patient's blood cultures have no growth in 24 hours. Sputum cultures, normal sandro. Urine cultures are negative. HIV is negative and hepatitis profile is negative. Influenza is negative. ASSESSMENT AND PLAN: A 63-year-old female who is admitted with severe sepsis due to being febrile. The patient with healthcare-associated pneumonia, pancytopenia, must rule out underlying gallbladder disease and neutropenic febrile, on vancomycin, meropenem, and Levaquin. Workup initially is pending and Dr. Umanzor's note consultation is reviewed. This patient with cirrhosis, questionable acute cholecystitis, esophageal varices, hepatosplenomegaly, neutropenic febrile patient. Ultrasound of the abdomen is reviewed, common bile duct is 6 mm. No gallstone, but there is gallbladder wall thickening with edema. Negative sonographic Lemons's sign and a chest x-ray also from the 2nd is reviewed, left basilar opacity. We will follow with you. Doug Koehler MD
--- NOTE | 2018-09-05 14:55 | NM ---
Date of service: 09/05/2018 PROCEDURE: Nuclear Medicine Hepatobiliary Scan HISTORY: suspect cholecysitis COMPARISON: None available. TECHNIQUE: 5.1 mCi of technetium 99m Mebrofenin was administered intravenously. Planar images of the abdomen were obtained at 5 min intervals to 60 mins. Delayed images were also obtained. FINDINGS: LIVER: Timely and homogenous uptake. COMMON BILE DUCT: identified at 15 mins. GALLBLADDER: identified at 30 mins. SMALL BOWEL: Identified at 15 mins. IMPRESSION: Normal Hepatobiliary Scan. The cystic duct is patent.
--- NOTE | 2018-09-05 17:39 | CON ---
DATE: 09/05/2018 REQUESTING PHYSICIAN: Dr. Solorio. REASON FOR CONSULTATION: Pancytopenia. HISTORY OF PRESENT ILLNESS: Ms. Rivers is a 63-year-old female admitted to the hospital with a recurrent UTI. She has history of hepatosplenomegaly and cirrhosis of the liver. Also complaining of epigastric pain. She sees a viscose cellar charge hand in [place], where she lives, she is visiting [place]. She was diagnosed with cirrhosis of the liver at [facility] in [place]. She also has history of rheumatoid arthritis on methotrexate. She has low white blood cell count 1.4, low platelet count of 26,000. The entire medical record on [facility] reviewed. She had low white count of 2.6 in 2018 in August, platelet count 67 . blood counts have worsened compared to past year. PAST MEDICAL HISTORY: Cirrhosis of liver unknown etiology, rheumatoid arthritis, and hepatosplenomegaly. PAST SURGICAL HISTORY: None. SOCIAL HISTORY: No history of alcohol abuse. No history of drug abuse. FAMILY HISTORY: No positive family history of malignancy or blood disorder. REVIEW OF SYSTEMS: Complaining of epigastric pain. Rest of the 12-point review of systems reviewed and negative. ALLERGIES: NO KNOWN DRUG ALLERGIES. MEDICATIONS: Home medications; vitamin D. Current medications; vitamin D, meropenem, vancomycin, levofloxacin, propanolol, and pantoprazole. PHYSICAL EXAMINATION GENERAL: Comfortable in bed and in no acute distress. VITAL SIGNS: Temperature 98.9, heart rate 80 per minute, blood pressure 100/60, respiratory rate 16 per minute, on oxygen by nasal cannula. HEENT: Negative. NECK: No lymphadenopathy. CHEST: Air entry present and equal bilaterally. No added sound. ABDOMEN: Hepatosplenomegaly present. EXTREMITIES: No edema. CENTRAL NERVOUS SYSTEM: Alert and oriented x3. No focal sensory motor deficit. LABORATORY DATA: White count 1.4, hemoglobin 11.3, hematocrit 33.4, and platelet 28. Sodium 134, potassium 4.3, calcium 7.9, iron 22, and B12 of 724. CAT scan of abdomen and pelvis showed splenomegaly. ASSESSMENT AND PLAN: 1. Cirrhosis of liver. 2. Hepatosplenomegaly. 3. Leukopenia thrombocytopenia. PLAN: Leukopenia thrombocytopenia likely related hepatosplenomegaly and cirrhosis of liver. No obvious bleeding right now. Bone marrow aspiration biopsy is recommended to rule out other causes of leukopenia thrombocytopenia including MDS, bone marrow infiltration with malignancy. I discussed with the daughter who was at bedside. I advised her that she will need bone marrow aspiration biopsy to find the cause of leukopenia and thrombocytopenia, daughter refused the bone marrow aspiration biopsy. She said she has her doctors in [place] and she has received blood transfusion in the past with her marine services technician She would prefer to continue further workup and treatment with doctors in [place]. She also sees viscose cellar charge hand in [place]. She has upcoming appointment there in three months. I advised the daughter to let us know if she decides for bone marrow aspiration biopsy during this hospitalization. Absolute neutrophil count is 380. She is currently on IV antibiotics. No indication for Neupogen unless etiology of neutropenia is established. Platelet transfusion if bleeding. Thank you, Dr. Solorio for allowing us to participate in Ms. Rivers's care. Oralia Reeves MD JONATHAN
[2018-09-06] MEDS: Albuterol-Ipratrop 3 mg / 0.5 (3 ml) UD IH SCH ×3 (02:10→13:36)
[2018-09-06] MEDS: Meropenem IV 1 gm in NS 1 GM/50 ML BAG IVPB SCH ×3 (05:20→21:50)
--- NOTE | 2018-09-06 06:42 | CP.PCM.PN ---
<Nikita Marcos - Last Filed: 09/06/18 15:50> Subjective - Date & Time of Evaluation Date of Evaluation: 09/06/18 Time of Evaluation: 06:42 - Subjective Subjective: PGY-1 Medicine Progress Note for Dr. Cruz Patient seen and evaluated at bedside. Patient had no acute events overnight. She states that her abdominal pain has resolved. She denies fevers, chills, headaches, shortness of breath, chest pain, N/V/D, or any other complaints. Objective - Vital Signs/Intake and Output Vital Signs (last 24 hours): Temp Pulse Resp BP Pulse Ox 98.2 F 66 18 95/44 L 99 09/06/18 05:26 09/06/18 05:51 09/06/18 05:26 09/06/18 05:26 09/06/18 05:26 Intake and Output: 09/05/18 09/06/18 18:59 06:59 Intake Total 1230 890 Output Total 0 3 Balance 1230 887 - Medications Medications: Current Medications Albuterol/Ipratropium (Duoneb 3 Mg/0.5 Mg (3 Ml) Ud) 3 ml IH [id number] NOELLE Last Admin: 09/06/18 02:10 Dose: 3 ml Cholecalciferol (Vitamin D) 1,000 intlu PO DAILY NOELLE Last Admin: 09/05/18 10:52 Dose: 1,000 intlu Meropenem (Merrem Iv 1 Gm Premix) 1 gm in 50 mls @ 100 mls/hr IVPB Q8 NOELLE; Protocol Stop: 09/13/18 14:01 Last Admin: 09/06/18 05:20 Dose: 100 mls/hr Vancomycin HCl (Vancomycin 1gm) 1 gm in 250 mls @ 167 mls/hr IVPB Q12H NOELLE; Protocol Stop: 09/13/18 10:16 Last Admin: 09/05/18 21:14 Dose: 167 mls/hr Levofloxacin/Dextrose (Levaquin 750mg) 750 mg IVPB DAILY NOELLE; Protocol Stop: 09/13/18 10:16 Last Admin: 09/05/18 10:51 Dose: 750 mg Pantoprazole Sodium (Protonix Inj) 40 mg IVP Q12 NOELLE Last Admin: 09/05/18 21:14 Dose: 40 mg Propranolol HCl (Inderal) 10 mg PO TID NOLELE Last Admin: 09/05/18 17:06 Dose: Not Given - Labs Labs: 09/05/18 09:00 09/05/18 09:00 PT 18.8 SECONDS (9.4-12.5) H 09/03/18 15:07 INR 1.69 09/03/18 15:07 APTT 34.6 Seconds (26.9-38.3) 09/03/18 15:07 - Additional Findings Additional findings: - Constitutional Appears: Well, Non-toxic, No Acute Distress - Head Exam Head Exam: ATRAUMATIC, NORMAL INSPECTION - Eye Exam Eye Exam: EOMI, Normal appearance Pupil Exam: NORMAL ACCOMODATION, PERRL - ENT Exam ENT Exam: Mucous Membranes Moist - Respiratory Exam Respiratory Exam: Clear to auscultate bilaterally absent: Rhonchi, Wheezes, Rales, Respiratory Distress, Stridor - Cardiovascular Exam Cardiovascular Exam: REGULAR RHYTHM, +S1, +S2. absent: Gallop, Rubs, Murmur - GI/Abdominal Exam GI & Abdominal Exam: Soft. absent: Distended, Firm, Guarding, Rigid, Tenderness - Extremities Exam Extremities Exam: absent: Calf Tenderness, Pedal Edema - Neurological Exam Neurological Exam: Alert, Awake, CN II-XII Intact - Psychiatric Exam Psychiatric exam: Normal Affect, Normal Mood - Skin Skin Exam: Dry, Intact, Normal Color, Warm Assessment and Plan - Assessment and Plan (Free Text) Assessment: Patient is a 63 year old female with past medical history of hepatosplenomegaly, liver cirrhosis due to unknown cause, recurrent UTI, and splenomegaly, admitted for pneumonia. Plan: Pneumonia - CXR impression: Mild left basilar opacities may reflect pneumonia - Procalcitonin: 0.67 - Consulted infectious disease, Dr Koehler - Start Doxycycline 100mg PO Q12 (Started on 09/06) - Meropenem 1g IV Q8 (Started 09/04) - Discontinued Vancomycin and Meropenem - Blood cx: no growth to date - Sputum cx: normal oral sandro - TB quantiferon, sputum AFB: pending - Influenza: negative - Legionella: pending Pancytopenia - Consulted heme/onc, Dr. Reeves - Keep patient on neutropenic precautions - Transfuse platelets if patient is bleeding - HIV: negative - Iron studies: Low iron, low TIBC, Low % saturation - B12/folate levels: WNL Marked gallbladder wall thickening/pericholecystic edema - CT abd/pelvis w/ contrast: Marked gallbladder wall thickening/pericholecystic edema. No calcified gallstones identified. - HIDA scan: normal hepatobiliary tree. Cystic duct is patent. - Abdominal ultrasound: Gallbladder wall thickening/edema measuring approximately 7 mm. No evidence gallstones. - Surgery consulted, Dr Costa - No surgical interventions at this time Liver cirrhosis - Start Spironolactone 25mg PO QD - Hepatitis panel: negative - AFP: WNL - Consulted GI, Dr. Umanzor Esophageal varices - Propranolol 10mg PO Q8 - Protonix 40mg ivp q12h - GI consulted, Dr Umanzor Hematuria, resolved - Likely 2/2 to thrombocytopenia Asymptomatic UTI - UA showing trace leukocyte esterase - Urine cx: no growth to date - Consulted infectious disease, Dr Koehler Small right pleural effusion - Echo: global hypokinesis of the left ventricle. Systolic function mildly impaired. Rhematoid Arthritis - Hold home med hydroxychloroquine 200mg po qd for now - carmen, crp, esr: pending Hx of vitamin D deficiency - Vitamin D level: 49.2 - Continue home medication, Vitamin D3 100mg PO QD 2 mm probable right ovarian cyst - AFP: WNL - CEA-125:38.7 (Normal: 0-35) GI prophylaxis: protonix 40 mg DVT prophylaxis: SCD Patient seen and case discussed with attending, Dr. Anthony Marcos, PGY-1 <Aramis Cruz - Last Filed: 09/09/18 16:31> Objective - Vital Signs/Intake and Output Vital Signs (last 24 hours): Temp Pulse Resp BP Pulse Ox 98.0 F 84 20 97/62 L 95 09/09/18 06:00 09/09/18 11:07 09/09/18 06:00 09/09/18 11:07 09/09/18 06:00 Intake and Output: 09/09/18 09/09/18 06:59 18:59 Intake Total 1140 Balance 1140 - Labs Labs: 09/09/18 06:20 09/09/18 06:20 PT 19.6 SECONDS (9.4-12.5) H 09/08/18 06:00 INR 1.73 09/08/18 06:00 APTT 34.6 Seconds (26.9-38.3) 09/03/18 15:07 Attending/Attestation - Attestation I have personally seen and examined this patient.: Yes I have fully participated in the care of the patient.: Yes I have reviewed all pertinent clinical information, including history, physical exam and plan: Yes Notes (Text): 09/09/18 16:31 Medical record note made by the resident after discussion with my direction and input after the patient was personally seen and examined by me. I have reviewed the chart and agree that the record accurately reflects by personal performance of the history, physical exam, data review, and medical decision-making, in the course for the patient. I have also personally directed the plan of care.
[2018-09-06 07:58] LABS: BASO # 0.01 K/mm3 (0.0-2.0); BASO % 0.9 % (0.0-3.0); EOS % 3.5 % (1.5-5.0); HEMOGLOBIN 10.6 g/dL (12.0-16.0); LYMPH # 0.6 (1.2-3.4); LYMPH % 50.4 % (22.0-35.0); MEAN CELL VOLUME 91.5 fl (80.0-105.0); MEAN CORPUSCULAR HEMOGLOBIN 30.1 pg (25.0-35.0); MEAN CORPUSCULAR HGB CONC 32.9 g/dl (31.0-37.0); MONO # 0.2 (0.1-0.6); MONO % 19.1 % (1.0-6.0); RBC 3.52 10^6/uL (3.5-6.1); RED CELL DISTRIBUTION WIDTH 15.3 % (11.5-14.5)
[2018-09-06 08:05] LABS: ALB/GLOB RATIO 0.6 (1.1-1.8); ALBUMIN 2.4 g/dL (3.0-4.8); ALT/SGPT 30 U/L (7-56); AST/SGOT 59 U/L (14-36); BLOOD UREA NITROGEN 9 mg/dL (7-21); CALCIUM 7.9 mg/dL (8.4-10.5); GFR NON-AFRICAN AMERICAN > 60
[2018-09-06 08:19] LABS: PLATELET COUNT 37 10^3/uL (120.0-450.0); WHITE BLOOD COUNT 1.2 10^3/uL (4.5-11.0)
[2018-09-06] MEDS: Cholecalciferol 1,000 INTLU TAB PO SCH (10:01)
[2018-09-06] MEDS: levoFLOXacin 750 mg in D5W 150 ML BAG IVPB SCH (10:01)
--- NOTE | 2018-09-06 10:54 | CARD ---
APPROVED REPORT Date of service: 09/05/2018 EXAM: Two-dimensional and M-mode echocardiogram with Doppler and color Doppler. INDICATION RT EFFUSION, R/O CARDIAC ETIOLOGY 2D DIMENSIONS Left Atrium (2D)4.0 (1.6-4.0cm) M-Mode DIMENSIONS Aortic Root3.30 (2.2-3.7cm)Aortic Cusp Exc.1.70 (1.5-2.0cm) Aortic Valve AoV Peak Hizkkmga431.0cm/Courtney Peak GR.7mmHg Mitral Valve MV E Zodiquha26.3cm/sMV A Xptifpgj11.5cm/sE/A ratio1.1 TDI Lateral E' Peak V12.80cm/sMedial E' Peak V7.31cm/sE/Lateral E'5.3 E/Medial E'9.2 Pulmonary Valve PV Peak Zbpvujdn46.0cm/sPV Peak Grad.2mmHg Tricuspid Valve TR Peak [id number]/sRAP [id number] Peak Gr.20mmHg [id number] LEFT VENTRICLE The left ventricle is normal size. There is normal left ventricular wall thickness. The systolic function is mildly impaired. There is global hypokinesis of the left ventricle. Transmitral Doppler flow pattern is Grade I-abnormal relaxation pattern. RIGHT VENTRICLE The right ventricle is normal size. There is normal right ventricular wall thickness. The right ventricular systolic function is normal. ATRIA The left atrium is borderline dilated. The right atrium size is normal. AORTIC VALVE The aortic valve is mildly thickened. No aortic regurgitation is present. There is no aortic valvular stenosis. MITRAL VALVE The mitral valve is mildly thickened. There is no mitral valve regurgitation noted. There is no mitral valve stenosis. TRICUSPID VALVE The tricuspid valve is normal in structure. There is mild tricuspid regurgitation. PULMONIC VALVE There is trace to mild pulmonic valvular regurgitation. GREAT VESSELS The aortic root is normal in size. The IVC is normal in size and collapses >50% with inspiration. PERICARDIAL EFFUSION There is no pericardial effusion. <Conclusion> There is normal left ventricular wall thickness. The systolic function is mildly impaired. There is global hypokinesis of the left ventricle. Transmitral Doppler flow pattern is Grade I-abnormal relaxation pattern. There is mild tricuspid regurgitation.
--- NOTE | 2018-09-06 12:14 | CP.PCM.PN ---
<Anastasiya Wong - Last Filed: 09/06/18 12:12> Subjective - Date & Time of Evaluation Date of Evaluation: 09/06/18 Time of Evaluation: 10:15 - Subjective Subjective: GI progress note for Dr. Umanzor-Anastasiya Wong, PGY-2 Pt seen/examined at bedside with Dr. Umanzor Pt resting comfortably in bed. Abdominal pain has resolved, tolerating heart healthy diet. Denies N & V. Objective - Vital Signs/Intake and Output Vital Signs (last 24 hours): Temp Pulse Resp BP Pulse Ox 98.2 F 85 18 95/44 L 99 09/06/18 05:26 09/06/18 10:00 09/06/18 05:26 09/06/18 05:26 09/06/18 05:26 Intake and Output: 09/06/18 09/06/18 06:59 18:59 Intake Total 890 Output Total 3 Balance 887 - Medications Medications: Current Medications Albuterol/Ipratropium (Duoneb 3 Mg/0.5 Mg (3 Ml) Ud) 3 ml IH [id number] [facility] Last Admin: 09/06/18 07:53 Dose: 3 ml Cholecalciferol (Vitamin D) 1,000 intlu PO DAILY [facility] Last Admin: 09/06/18 10:01 Dose: 1,000 intlu Doxycycline Hyclate (Doryx) 100 mg PO Q12 [facility]; Protocol Stop: 09/11/18 22:01 Meropenem (Merrem Iv 1 Gm Premix) 1 gm in 50 mls @ 100 mls/hr IVPB Q8 [facility]; Protocol Stop: 09/13/18 14:01 Last Admin: 09/06/18 05:20 Dose: 100 mls/hr Pantoprazole Sodium (Protonix Ec Tab) 40 mg PO Q12 [facility] Propranolol HCl (Inderal) 10 mg PO TID [facility] Last Admin: 09/05/18 17:06 Dose: Not Given Spironolactone (Aldactone) 25 mg PO DAILY [facility] - Labs Labs: 09/06/18 07:15 09/06/18 07:15 PT 18.8 SECONDS (9.4-12.5) H 09/03/18 15:07 INR 1.69 09/03/18 15:07 APTT 34.6 Seconds (26.9-38.3) 09/03/18 15:07 - Constitutional Appears: Non-toxic, No Acute Distress - Head Exam Head Exam: ATRAUMATIC, NORMAL INSPECTION, NORMOCEPHALIC - Eye Exam Eye Exam: EOMI, Normal appearance - ENT Exam ENT Exam: Mucous Membranes Moist, Normal Exam - Neck Exam Neck Exam: Full ROM - Respiratory Exam Respiratory Exam: NORMAL BREATHING PATTERN. absent: Respiratory Distress - Cardiovascular Exam Cardiovascular Exam: REGULAR RHYTHM, +S1, +S2 - GI/Abdominal Exam GI & Abdominal Exam: Soft. absent: Distended (obese), Firm, Guarding, Rigid, Tenderness, Rebound - Extremities Exam Extremities Exam: Normal Inspection - Neurological Exam Neurological Exam: Alert, Awake, CN II-XII Intact - Skin Skin Exam: Dry, Intact, Normal Color, Warm Assessment and Plan - Assessment and Plan (Free Text) Assessment: 63F w/ hx of hepatosplenomegaly, liver cirrhosis due to unknown cause, recurrent UTI, and splenomegaly presents with epigastric abdominal pain radiating to the left side of the lumbar area and to the left scapula- improved, does not currently have abdominal pain Plan: Continue liver work up in [place] as previously established Abx as per ID Recommend Spironolactone at 25mg daily Continue Propranolol HIDA negative Continue diet Further care as per primary team DW Dr. Umanzor <La Umanzor V - Last Filed: 09/06/18 20:44> Objective - Vital Signs/Intake and Output Vital Signs (last 24 hours): Temp Pulse Resp BP Pulse Ox 98.7 F 80 19 96/58 L 99 09/06/18 18:00 09/06/18 18:00 09/06/18 18:00 09/06/18 18:00 09/06/18 05:26 Intake and Output: 09/06/18 09/07/18 18:59 06:59 Intake Total 200 Balance 200 - Medications Medications: Current Medications Albuterol/Ipratropium (Duoneb 3 Mg/0.5 Mg (3 Ml) Ud) 3 ml IH [id number] [facility] Last Admin: 09/06/18 13:36 Dose: 3 ml Cholecalciferol (Vitamin D) 1,000 intlu PO DAILY [facility] Last Admin: 09/06/18 10:01 Dose: 1,000 intlu Doxycycline Hyclate (Doryx) 100 mg PO Q12 [facility]; Protocol Stop: 09/11/18 22:01 Meropenem (Merrem Iv 1 Gm Premix) 1 gm in 50 mls @ 100 mls/hr IVPB Q8 [facility]; Protocol Stop: 09/13/18 14:01 Last Admin: 09/06/18 13:09 Dose: 100 mls/hr Pantoprazole Sodium (Protonix Ec Tab) 40 mg PO Q12 [facility] Propranolol HCl (Inderal) 10 mg PO TID [facility] Last Admin: 09/06/18 17:27 Dose: Not Given Spironolactone (Aldactone) 25 mg PO DAILY [facility] Last Admin: 09/06/18 13:09 Dose: 25 mg - Labs Labs: 09/06/18 07:15 09/06/18 07:15 PT 18.8 SECONDS (9.4-12.5) H 09/03/18 15:07 INR 1.69 09/03/18 15:07 APTT 34.6 Seconds (26.9-38.3) 09/03/18 15:07 Attending/Attestation - Attestation I have personally seen and examined this patient.: Yes I have fully participated in the care of the patient.: Yes I have reviewed all pertinent clinical information, including history, physical exam and plan: Yes Notes (Text): This is an addendum to GI progress report dictated by the GI Fellow. The patient was seen and examined earlier. Medical records, lab studies, imagings were reviewed. Last 24 hours events reviewed. Agreed with the above treatment plan as outlined in GI Fellow 's notes with the addition of the following Clinically patient is doing better discussed with the medical team regarding obtaining previous blood work from [place]. Patient is presently neutropenic which could be her baseline WBC. Is reasonable to obtain the records from [facility] Continue the antibiotics Will restart Aldactone 09/06/18 20:42
[2018-09-06] MEDS: Vancomycin 1gm in NS 250ml 1 GM/250 ML BAG IVPB SCH (12:55)
--- NOTE | 2018-09-06 15:42 | PN ---
DATE: 09/06/2018 SUBJECTIVE: The patient is in bed, in no acute distress, nontoxic. The patient was seen earlier this morning. PHYSICAL EXAMINATION: VITAL SIGNS: Temperature is 98, blood pressure is 95/40, respiratory rate of 18. HEENT: Unremarkable. NECK: Supple. LUNGS: Have decreased breath sounds. HEART: Normal S1 and S2. ABDOMEN: Soft, nontender. LABORATORY DATA: Reveals the patient's white count of 1.2, hemoglobin of 10, platelets of 37,000, absolute count is 300; and chemistries are noted. Urinalysis is noted. Serology is reviewed, blood cultures negative, urine cultures negative, and sputum cultures are normal sandro. ASSESSMENT AND PLAN: This is a 63-year-old female who was admitted with severe sepsis and neutropenic febrile patient with healthcare-associated pneumonia, pancytopenia. Initial osorio cultures negative. Currently on Levaquin, meropenem, and vancomycin. We will discontinue the vancomycin. We will also discontinue the Levaquin and place the patient on p.o. doxycycline, continue the meropenem, short course of antibiotics, awaiting for resolution of the WBCs, and we will follow closely with you. We will repeat the urine Legionella antigen, initial order was not carried out. Doug Koehler MD
[2018-09-06] MEDS ORDERED: Pantoprazole 40 mg EC Tab PO SCH (22:00)
[2018-09-07] MEDS: Albuterol-Ipratrop 3 mg / 0.5 (3 ml) UD IH SCH ×4 (01:23→20:45)
[2018-09-07] MEDS: Meropenem IV 1 gm in NS 1 GM/50 ML BAG IVPB SCH ×3 (05:05→21:59)
[2018-09-07] MEDS ORDERED: Albuterol-Ipratrop 3 mg / 0.5 (3 ml) UD IH STA (06:11)
--- NOTE | 2018-09-07 06:14 | CP.PCM.PCO ---
<Magno Tiwari - Last Filed: 09/07/18 06:12> Addendum Addendum: 09/07/18 06:12 PGY1 House Doctor: Was paged about Patient due to complaint of "chest burning." Patient was seen and evaluated at bedside. EKG was normal sinus rhythm. No arrhythmia, no tachycardia, no T wave abnormalities. Patient is resting comfortably in bed, however on exam she has diffuse wheezing. Troponin ordered. Duoneb ordered. <Aramis Cruz - Last Filed: 09/10/18 11:58> Attending/Attestation - Attestation I have personally seen and examined this patient.: Yes I have fully participated in the care of the patient.: Yes I have reviewed all pertinent clinical information: Yes
[2018-09-07 06:18] LABS: BASO # 0.01 K/mm3 (0.0-2.0); BASO % 0.8 % (0.0-3.0); EOS % 2.3 % (1.5-5.0); HEMOGLOBIN 10.4 g/dL (12.0-16.0); LYMPH # 0.5 (1.2-3.4); LYMPH % 40.9 % (22.0-35.0); MEAN CELL VOLUME 91.9 fl (80.0-105.0); MEAN CORPUSCULAR HEMOGLOBIN 30.1 pg (25.0-35.0); MEAN CORPUSCULAR HGB CONC 32.8 g/dl (31.0-37.0); MONO # 0.2 (0.1-0.6); MONO % 16.7 % (1.0-6.0); RBC 3.45 10^6/uL (3.5-6.1); RED CELL DISTRIBUTION WIDTH 15.5 % (11.5-14.5)
[2018-09-07 06:38] LABS: ALB/GLOB RATIO 0.6 (1.1-1.8); ALBUMIN 2.5 g/dL (3.0-4.8); ALT/SGPT 30 U/L (7-56); AST/SGOT 58 U/L (14-36); BLOOD UREA NITROGEN 8 mg/dL (7-21); GFR NON-AFRICAN AMERICAN > 60
[2018-09-07 06:43] LABS: PLATELET COUNT 42 10^3/uL (120.0-450.0); WHITE BLOOD COUNT 1.3 10^3/uL (4.5-11.0)
--- NOTE | 2018-09-07 07:15 | CP.PCM.PN ---
<Nikita Marcos - Last Filed: 09/07/18 13:18> Subjective - Date & Time of Evaluation Date of Evaluation: 09/07/18 Time of Evaluation: 07:15 - Subjective Subjective: PGY-1 Medicine Progress Note for Dr. Cruz Patient seen and evaluated at bedside. Patient complained of epigastric pain last night, night team ordered troponin and EKG. She denies fevers, chills, headaches, shortness of breath, chest pain, abdominal pain, N/V/D, or any other complaints. Objective - Vital Signs/Intake and Output Vital Signs (last 24 hours): Temp Pulse Resp BP Pulse Ox 98.2 F 60 20 97/60 L 97 09/07/18 06:00 09/07/18 06:00 09/07/18 06:00 09/07/18 06:00 09/07/18 06:00 Intake and Output: 09/07/18 09/07/18 06:59 18:59 Intake Total 260 Balance 260 - Medications Medications: Current Medications Albuterol/Ipratropium (Duoneb 3 Mg/0.5 Mg (3 Ml) Ud) 3 ml IH [id number] [facility] Last Admin: 09/07/18 01:23 Dose: 3 ml Cholecalciferol (Vitamin D) 1,000 intlu PO DAILY [facility] Last Admin: 09/06/18 10:01 Dose: 1,000 intlu Doxycycline Hyclate (Doryx) 100 mg PO Q12 [facility]; Protocol Stop: 09/11/18 22:01 Last Admin: 09/06/18 21:49 Dose: 100 mg Meropenem (Merrem Iv 1 Gm Premix) 1 gm in 50 mls @ 100 mls/hr IVPB Q8 [facility]; Protocol Stop: 09/13/18 14:01 Last Admin: 09/07/18 05:05 Dose: 100 mls/hr Pantoprazole Sodium (Protonix Ec Tab) 40 mg PO Q12 [facility] Last Admin: 09/06/18 21:49 Dose: 40 mg Propranolol HCl (Inderal) 10 mg PO TID [facility] Last Admin: 09/06/18 17:27 Dose: Not Given Spironolactone (Aldactone) 25 mg PO DAILY [facility] Last Admin: 09/06/18 13:09 Dose: 25 mg - Labs Labs: 09/07/18 05:55 09/07/18 05:55 PT 18.8 SECONDS (9.4-12.5) H 09/03/18 15:07 INR 1.69 09/03/18 15:07 APTT 34.6 Seconds (26.9-38.3) 09/03/18 15:07 - Additional Findings Additional findings: - Constitutional Appears: Well, Non-toxic, No Acute Distress - Head Exam Head Exam: ATRAUMATIC, NORMAL INSPECTION - Eye Exam Eye Exam: EOMI, Normal appearance Pupil Exam: NORMAL ACCOMODATION, PERRL - ENT Exam ENT Exam: Mucous Membranes Moist - Respiratory Exam Respiratory Exam: Clear to auscultate bilaterally absent: Rhonchi, Wheezes, Rales, Respiratory Distress, Stridor - Cardiovascular Exam Cardiovascular Exam: REGULAR RHYTHM, +S1, +S2. absent: Gallop, Rubs, Murmur - GI/Abdominal Exam GI & Abdominal Exam: Soft. absent: Distended, Firm, Guarding, Rigid, Tenderness - Extremities Exam Extremities Exam: absent: Calf Tenderness, Pedal Edema - Neurological Exam Neurological Exam: Alert, Awake, CN II-XII Intact - Psychiatric Exam Psychiatric exam: Normal Affect, Normal Mood - Skin Skin Exam: Dry, Intact, Normal Color, Warm Assessment and Plan - Assessment and Plan (Free Text) Assessment: Patient is a 63 year old female with past medical history of hepatosplenomegaly, liver cirrhosis due to unknown cause, recurrent UTI, and splenomegaly, admitted for pneumonia. Plan: Pneumonia - CXR impression: Mild left basilar opacities may reflect pneumonia - Procalcitonin: 0.67 - Consulted infectious disease, Dr Koehler - Doxycycline 100mg IV Q12 (Started on 09/06) - Meropenem 1g IV Q8 (Started 09/04) - Blood cx: no growth to date - Sputum cx: normal oral sandro - TB quantiferon, sputum AFB: pending - Influenza: negative - Legionella: negative Pancytopenia - Consulted heme/onc, Dr. Reeves - Keep patient on neutropenic precautions - Transfuse platelets if patient is bleeding Marked gallbladder wall thickening/pericholecystic edema - Surgery consulted, Dr Costa - No surgical interventions at this time Esophageal varices - Propranolol 10mg PO Q8 - Protonix 40mg ivp q12h - GI consulted, Dr Umanzor Liver cirrhosis - Continue home medication, Spironolactone 25mg PO QD Asymptomatic UTI - UA showing trace leukocyte esterase - Urine cx: no growth to date - Consulted infectious disease, Dr Koehler Small right pleural effusion - Echo: global hypokinesis of the left ventricle. Systolic function mildly impaired. Hx of rheumatoid Arthritis - Hold home med Hydroxychloroquine Hx of vitamin D deficiency - Vitamin D level: 49.2 - Continue home medication, Vitamin D3 100mg PO QD GI prophylaxis: protonix 40 mg DVT prophylaxis: SCD Patient seen and case discussed with attending, Dr. Anthony Marcos, PGY-1 <Aramis Cruz - Last Filed: 09/08/18 14:45> Objective - Vital Signs/Intake and Output Vital Signs (last 24 hours): Temp Pulse Resp BP Pulse Ox 97.7 F 78 18 102/66 94 L 09/08/18 09:03 09/08/18 14:14 09/08/18 09:03 09/08/18 14:14 09/08/18 09:03 Intake and Output: 09/08/18 09/08/18 06:59 18:59 Intake Total 120 Balance 120 - Medications Medications: Current Medications Al Hydrox/Mg Hydrox/Simethicone (Maalox Plus 30 Ml) 15 ml PO Q8 [facility] Last Admin: 09/08/18 14:14 Dose: 15 ml Albuterol/Ipratropium (Duoneb 3 Mg/0.5 Mg (3 Ml) Ud) 3 ml IH [id number] [facility] Last Admin: 09/08/18 13:29 Dose: 3 ml Cholecalciferol (Vitamin D) 1,000 intlu PO DAILY [facility] Last Admin: 09/08/18 09:33 Dose: 1,000 intlu Guaifenesin (Robitussin) 200 mg PO Q4H PRN PRN Reason: Cough and congestion Last Admin: 09/07/18 16:03 Dose: 200 mg Hydroxychloroquine Sulfate (Plaquenil) 200 mg PO DAILY [facility]; Protocol Last Admin: 09/08/18 09:32 Dose: 200 mg Pantoprazole Sodium (Protonix Ec Tab) 40 mg PO 0600 [facility] Last Admin: 09/08/18 05:32 Dose: 40 mg Prednisone (Prednisone Tab) 40 mg PO DAILY [facility] Stop: 09/12/18 10:01 Last Admin: 09/08/18 14:16 Dose: 40 mg Propranolol HCl (Inderal) 10 mg PO TID [facility] Last Admin: 09/08/18 14:14 Dose: 10 mg Spironolactone (Aldactone) 25 mg PO DAILY [facility] Last Admin: 09/08/18 09:30 Dose: 25 mg Sucralfate (Carafate Tab) 1 gm PO 0630,1630 [facility] Last Admin: 09/08/18 05:33 Dose: 1 gm - Labs Labs: 09/08/18 06:00 09/08/18 06:00 PT 19.6 SECONDS (9.4-12.5) H 09/08/18 06:00 INR 1.73 09/08/18 06:00 APTT 34.6 Seconds (26.9-38.3) 09/03/18 15:07 Attending/Attestation - Attestation I have personally seen and examined this patient.: Yes I have fully participated in the care of the patient.: Yes I have reviewed all pertinent clinical information, including history, physical exam and plan: Yes Notes (Text): 09/08/18 14:43 Medical record note made by the resident after discussion with my direction and input after the patient was personally seen and examined by me. I have reviewed the chart and agree that the record accurately reflects by personal performance of the history, physical exam, data review, and medical decision-making, in the course for the patient. I have also personally directed the plan of care. 63 year old female with past medical history of chronic liver disease, hepatosplenomegaly, Pancytopenia with HCAP Pneumonia. Cultures are negative for any growth.Patient is afebrile. Pancytropenia is stable.
[2018-09-07 08:57] LABS: EOSINOPHIL 2 % (0.0-3.0); LYMPHOCYTE 34 % (22.0-35.0); MONOCYTE 20 % (1.0-6.0); NEUTROPHIL 44 % (50.0-70.0)
[2018-09-07] MEDS ORDERED: guaiFENesin 200 mg/10 ml Syrup UD PO PRN (10:24)
[2018-09-07] MEDS ORDERED: Alum-Mag Hydrox-Simethicone Susp (30 mL) PO PRN (10:24)
[2018-09-07] MEDS: Cholecalciferol 1,000 INTLU TAB PO SCH (10:30)
--- NOTE | 2018-09-07 11:01 | PN ---
DATE: 09/07/2018 SUBJECTIVE: The patient is in bed in no acute distress, nontoxic. PHYSICAL EXAMINATION: VITAL SIGNS: Temperature is 98, blood pressure is 98/60, respiratory rate of 20. HEENT: Unremarkable. NECK: Supple. LUNGS: Have decreased breath sounds. HEART: Normal S1, S2. ABDOMEN: Soft, nontender. LABORATORY EXAMINATION: Reveals a white count of 1.3, hemoglobin of 10. Chemistries reveals a BUN of 8, creatinine of 0.6. Urinalysis is noted and immunology is noted and titers of 1-320 positive SAAD screen and nucleolar. Microbiology is reviewed. ASSESSMENT AND PLAN: This is a 63-year-old female admitted with severe sepsis, neutropenic febrile patient with healthcare-associated pneumonia, pancytopenia. Currently on p.o. doxycycline and meropenem day #4. We will follow the WBC count which is up to 1.3 today at absolute count is 520 and urine Legionella antigen is negative. Influenza is negative. HIV is negative and microbiology is all negative. Today is day #4 of antibiotics would complete 4-7 days of antibiotics. Doug Koehler MD
--- NOTE | 2018-09-07 11:16 | CP.PCM.PN ---
<EwelinamarieHenry - Last Filed: 09/07/18 18:22> Subjective - Date & Time of Evaluation Date of Evaluation: 09/07/18 Time of Evaluation: 11:12 - Subjective Subjective: Patient is complaining of acid reflux, chest burning. Otherwise she is feeling better since being in the hospital. Daughter gave phone number for liver specia list in [place], however, the number is a [place] area code. Objective - Vital Signs/Intake and Output Vital Signs (last 24 hours): Temp Pulse Resp BP Pulse Ox 98.2 F 87 20 91/51 L 97 09/07/18 06:00 09/07/18 10:27 09/07/18 06:00 09/07/18 10:27 09/07/18 06:00 Intake and Output: 09/07/18 09/07/18 06:59 18:59 Intake Total 420 Balance 420 - Medications Medications: Current Medications Al Hydrox/Mg Hydrox/Simethicone (Maalox Plus 30 Ml) 30 ml PO DAILY PRN PRN Reason: Indigestion / Heartburn Albuterol/Ipratropium (Duoneb 3 Mg/0.5 Mg (3 Ml) Ud) 3 ml IH [id number] [facility] Last Admin: 09/07/18 07:41 Dose: 3 ml Cholecalciferol (Vitamin D) 1,000 intlu PO DAILY [facility] Last Admin: 09/07/18 10:30 Dose: 1,000 intlu Doxycycline Hyclate (Doryx) 100 mg PO Q12 [facility]; Protocol Stop: 09/11/18 22:01 Last Admin: 09/07/18 10:30 Dose: 100 mg Guaifenesin (Robitussin) 200 mg PO Q4H PRN PRN Reason: Cough and congestion Meropenem (Merrem Iv 1 Gm Premix) 1 gm in 50 mls @ 100 mls/hr IVPB Q8 [facility]; Protocol Stop: 09/13/18 14:01 Last Admin: 09/07/18 05:05 Dose: 100 mls/hr Propranolol HCl (Inderal) 10 mg PO TID [facility] Last Admin: 09/07/18 10:27 Dose: Not Given Spironolactone (Aldactone) 25 mg PO DAILY [facility] Last Admin: 09/07/18 10:29 Dose: Not Given Sucralfate (Carafate Tab) 1 gm PO 0630,1130,1630,2200 [facility] - Labs Labs: 09/07/18 05:55 09/07/18 05:55 PT 18.8 SECONDS (9.4-12.5) H 09/03/18 15:07 INR 1.69 09/03/18 15:07 APTT 34.6 Seconds (26.9-38.3) 09/03/18 15:07 - Constitutional Appears: Well, No Acute Distress - Eye Exam Eye Exam: EOMI, Normal appearance - ENT Exam ENT Exam: Mucous Membranes Moist, Normal Exam - Respiratory Exam Respiratory Exam: Clear to Ausculation Bilateral, NORMAL BREATHING PATTERN - Cardiovascular Exam Cardiovascular Exam: REGULAR RHYTHM, +S1, +S2 - GI/Abdominal Exam GI & Abdominal Exam: Soft, Normal Bowel Sounds. absent: Tenderness - Extremities Exam Extremities Exam: Normal Inspection. absent: Pedal Edema - Neurological Exam Neurological Exam: Alert, Awake, Oriented x3 - Psychiatric Exam Psychiatric exam: Normal Affect, Normal Mood - Skin Skin Exam: Normal Color, Warm Assessment and Plan - Assessment and Plan (Free Text) Assessment: Sandra Rivers is a 63F w/ hx of hepatosplenomegaly, liver cirrhosis due to unknown cause, recurrent UTI, and splenomegaly presents with epigastric abdominal pain radiating to the left side of the lumbar area and to the left scapula Cirrhosis etiology unknown Esophageal Varicies Hepatosplenomegaly Neutropenia PNA GERD, new. Possible medication-induced esophagitis, on doxycycline. Plan: -no evidence of Acities on CT -Continue aldactone and beta blockers -continue abx as per ID -Neutropenic precautions -diet as tolerated -will continue to follow -PPI for GERD. Should consider changing doxycycline to another antibiotic as it is the most likely factor causing the new GERD. This is concerning given her varices. We will hold Doxycycline for now to prevent further symptoms/damage until discussion with ID and primary team. -Advised patient to sit-up and drink plenty of water. This is specifically important when taking doxycycline. D/W Dr. Umanzor, see attestation. <La Umanzor V - Last Filed: 09/07/18 22:22> Objective - Vital Signs/Intake and Output Vital Signs (last 24 hours): Temp Pulse Resp BP Pulse Ox 97.4 F L 94 H 19 103/64 90 L 09/07/18 16:00 09/07/18 18:15 09/07/18 16:00 09/07/18 18:15 09/07/18 16:00 - Medications Medications: Current Medications Al Hydrox/Mg Hydrox/Simethicone (Maalox Plus 30 Ml) 15 ml PO Q8 [facility] Last Admin: 09/07/18 21:59 Dose: 15 ml Albuterol/Ipratropium (Duoneb 3 Mg/0.5 Mg (3 Ml) Ud) 3 ml IH [id number] [facility] Last Admin: 09/07/18 20:45 Dose: 3 ml Cholecalciferol (Vitamin D) 1,000 intlu PO DAILY [facility] Last Admin: 09/07/18 10:30 Dose: 1,000 intlu Guaifenesin (Robitussin) 200 mg PO Q4H PRN PRN Reason: Cough and congestion Last Admin: 09/07/18 16:03 Dose: 200 mg Hydroxychloroquine Sulfate (Plaquenil) 200 mg PO DAILY [facility]; Protocol Last Admin: 09/07/18 16:03 Dose: 200 mg Meropenem (Merrem Iv 1 Gm Premix) 1 gm in 50 mls @ 100 mls/hr IVPB Q8 [facility]; Protocol Stop: 09/13/18 14:01 Last Admin: 09/07/18 21:59 Dose: 100 mls/hr Doxycycline Hyclate 100 mg/ (Sodium Chloride) 100 mls @ 100 mls/hr IVPB Q12 [facility]; Protocol Pantoprazole Sodium (Protonix Ec Tab) 40 mg PO 0600 [facility] Propranolol HCl (Inderal) 10 mg PO TID [facility] Last Admin: 09/07/18 18:15 Dose: 10 mg Spironolactone (Aldactone) 25 mg PO DAILY [facility] Last Admin: 09/07/18 10:29 Dose: Not Given Sucralfate (Carafate Tab) 1 gm PO 0630,1630 [facility] Last Admin: 09/07/18 18:15 Dose: 1 gm - Labs Labs: 09/07/18 05:55 09/07/18 05:55 PT 18.8 SECONDS (9.4-12.5) H 09/03/18 15:07 INR 1.69 09/03/18 15:07 APTT 34.6 Seconds (26.9-38.3) 09/03/18 15:07 Attending/Attestation - Attestation I have personally seen and examined this patient.: Yes I have fully participated in the care of the patient.: Yes I have reviewed all pertinent clinical information, including history, physical exam and plan: Yes Notes (Text): This is an addendum to GI progress report dictated by the GI Fellow. The patient was seen and examined earlier. Medical records, lab studies, imagings were reviewed. Last 24 hours events reviewed. Agreed with the above treatment plan as outlined in GI Fellow 's notes with the addition of the following Clinically better except the retrosternal and epigastric discomfort Recent worsening of the symptoms could be related to pill induced esophagitis patient was on po doxycycline which has been changed to IV now Patient is thrombocytopenic and possible esophageal varices in view of the portal hypertension Would continue Carafate Patient is on PPI would consider reducing the dose of PPI to 20 mg with close monitoring of the platelet count Patient is still neutropenic Is reasonable to obtained her baseline CBC from her doctors in [place] as possibly she is chronically neutropenic 09/07/18 22:18
[2018-09-07] MEDS ORDERED: guaiFENesin-DM 600-30 mg ER Tab PO SCH (13:15)
--- NOTE | 2018-09-07 13:57 | CARD ---
APPROVED REPORT Date of service: 09/07/2018 EKG Measurement Heart [id number] <Conclusion> Normal sinus rhythm Normal ECG
[2018-09-07] MEDS: Alum-Mag Hydrox-Simethicone Susp (30 mL) PO SCH ×2 (16:03→21:59)
[2018-09-08] MEDS: Albuterol-Ipratrop 3 mg / 0.5 (3 ml) UD IH SCH ×4 (01:49→19:40)
[2018-09-08] MEDS: Meropenem IV 1 gm in NS 1 GM/50 ML BAG IVPB SCH (05:32)
[2018-09-08] MEDS: Alum-Mag Hydrox-Simethicone Susp (30 mL) PO SCH ×3 (05:32→21:29)
[2018-09-08] MEDS ORDERED: Pantoprazole 40 mg EC Tab PO SCH (06:00)
[2018-09-08 06:36] LABS: ALB/GLOB RATIO 0.6 (1.1-1.8); ALBUMIN 2.5 g/dL (3.0-4.8); ALT/SGPT 28 U/L (7-56); AST/SGOT 58 U/L (14-36); BLOOD UREA NITROGEN 8 mg/dL (7-21); CALCIUM 8.2 mg/dL (8.4-10.5); GFR NON-AFRICAN AMERICAN > 60
[2018-09-08 06:42] LABS: BASO # 0.01 K/mm3 (0.0-2.0); BASO % 0.7 % (0.0-3.0); EOS % 2.7 % (1.5-5.0); HEMOGLOBIN 10.5 g/dL (12.0-16.0); LYMPH # 0.7 (1.2-3.4); LYMPH % 44.9 % (22.0-35.0); MEAN CELL VOLUME 91.5 fl (80.0-105.0); MEAN CORPUSCULAR HEMOGLOBIN 30.8 pg (25.0-35.0); MEAN CORPUSCULAR HGB CONC 33.7 g/dl (31.0-37.0); MONO # 0.2 (0.1-0.6); MONO % 10.2 % (1.0-6.0); RBC 3.41 10^6/uL (3.5-6.1); RED CELL DISTRIBUTION WIDTH 15.3 % (11.5-14.5)
[2018-09-08 06:44] LABS: INR 1.73; PROTHROMBIN TIME 19.6 SECONDS (9.4-12.5)
[2018-09-08 07:16] LABS: PLATELET COUNT 46 10^3/uL (120.0-450.0); WHITE BLOOD COUNT 1.5 10^3/uL (4.5-11.0)
[2018-09-08] MEDS: Cholecalciferol 1,000 INTLU TAB PO SCH (09:33)
--- NOTE | 2018-09-08 16:14 | CP.PCM.PN ---
<SamferchoChandu - Last Filed: 09/08/18 16:11> Subjective - Date & Time of Evaluation Date of Evaluation: 09/08/18 Time of Evaluation: 16:11 - Subjective Subjective: Medicine Progress Note for Dr. Cruz 63F seen and evaluated at bedside this morning. No acute events overnight. Patient complaining of cough and mild ear pain. Minimal ambulation. Denies f/c, n/v/d, SOB, CP, or urinary symptoms. Objective - Vital Signs/Intake and Output Vital Signs (last 24 hours): Temp Pulse Resp BP Pulse Ox 97.7 F 78 18 102/66 94 L 09/08/18 09:03 09/08/18 14:14 09/08/18 09:03 09/08/18 14:14 09/08/18 09:03 Intake and Output: 09/08/18 09/08/18 06:59 18:59 Intake Total 120 Balance 120 - Medications Medications: Current Medications Al Hydrox/Mg Hydrox/Simethicone (Maalox Plus 30 Ml) 15 ml PO Q8 [facility] Last Admin: 09/08/18 14:14 Dose: 15 ml Albuterol/Ipratropium (Duoneb 3 Mg/0.5 Mg (3 Ml) Ud) 3 ml IH [id number] [facility] Last Admin: 09/08/18 13:29 Dose: 3 ml Cholecalciferol (Vitamin D) 1,000 intlu PO DAILY [facility] Last Admin: 09/08/18 09:33 Dose: 1,000 intlu Guaifenesin (Robitussin) 200 mg PO Q4H PRN PRN Reason: Cough and congestion Last Admin: 09/07/18 16:03 Dose: 200 mg Hydroxychloroquine Sulfate (Plaquenil) 200 mg PO DAILY [facility]; Protocol Last Admin: 09/08/18 09:32 Dose: 200 mg Pantoprazole Sodium (Protonix Ec Tab) 40 mg PO 0600 [facility] Last Admin: 09/08/18 05:32 Dose: 40 mg Prednisone (Prednisone Tab) 40 mg PO DAILY [facility] Stop: 09/12/18 10:01 Last Admin: 09/08/18 14:16 Dose: 40 mg Propranolol HCl (Inderal) 10 mg PO TID [facility] Last Admin: 09/08/18 14:14 Dose: 10 mg Spironolactone (Aldactone) 25 mg PO DAILY [facility] Last Admin: 09/08/18 09:30 Dose: 25 mg Sucralfate (Carafate Tab) 1 gm PO 0630,1630 [facility] Last Admin: 09/08/18 05:33 Dose: 1 gm - Labs Labs: 09/08/18 06:00 09/08/18 06:00 PT 19.6 SECONDS (9.4-12.5) H 09/08/18 06:00 INR 1.73 09/08/18 06:00 APTT 34.6 Seconds (26.9-38.3) 09/03/18 15:07 - Constitutional Appears: Well, Non-toxic, No Acute Distress - Head Exam Head Exam: ATRAUMATIC, NORMAL INSPECTION, NORMOCEPHALIC - Eye Exam Eye Exam: EOMI - ENT Exam ENT Exam: Mucous Membranes Moist - Respiratory Exam Respiratory Exam: Wheezes, NORMAL BREATHING PATTERN. absent: Respiratory Distress - Cardiovascular Exam Cardiovascular Exam: REGULAR RHYTHM, +S1, +S2. absent: Murmur - GI/Abdominal Exam GI & Abdominal Exam: Soft, Normal Bowel Sounds. absent: Tenderness - Neurological Exam Neurological Exam: Alert, Awake, Oriented x3 - Psychiatric Exam Psychiatric exam: Normal Affect, Normal Mood - Skin Skin Exam: Dry, Intact, Normal Color, Warm Assessment and Plan - Assessment and Plan (Free Text) Assessment: 63F, PMH of hepatosplenomegaly, liver cirrhosis due to unknown cause, recurrent UTI, and splenomegaly, admitted for pneumonia. Plan: Pneumonia - CXR impression: Mild left basilar opacities may reflect pneumonia - Procalcitonin: 0.67 - Consulted infectious disease, Dr Koehler - IV Antibiotics discontinued, will give 2 days of Levaquin 500mg PO BID - Prednisone 40mg QD for 5 days (started 09/08/18) - Guafenasin PRN - Blood cx: no growth to date - Sputum cx: normal oral sandro - TB quantiferon, sputum AFB: negative - Influenza: negative - Legionella: negative Pancytopenia - Consulted heme/onc, Dr. Reeves - Possibly chronic - Keep patient on neutropenic precautions - Transfuse platelets if patient is bleeding Marked gallbladder wall thickening/pericholecystic edema - Surgery consulted, Dr Costa - Likely secondary to liver cirrhosis - No surgical interventions at this time Esophageal varices - Propranolol 10mg PO Q8 - Protonix 20mg PO QD - GI consulted, Dr Umanzor - discontinued doxycycline 2/2 REGINO symptoms, continue carafate, PPI 20mg Liver cirrhosis - Continue home medication, Spironolactone 25mg PO QD Asymptomatic UTI - UA showing trace leukocyte esterase - Urine cx: no growth to date - Consulted infectious disease, Dr Koehler Small right pleural effusion - Echo: global hypokinesis of the left ventricle. Systolic function mildly impaired. Hx of rheumatoid Arthritis - Continue Hydroxychloroquine Hx of vitamin D deficiency - Vitamin D level: 49.2 - Continue home medication, Vitamin D3 100mg PO QD GI prophylaxis: protonix 40 mg DVT prophylaxis: SCD Dispo: Pending PT evaluation. Patient plan discussed with Dr. Anthony Aguilar PGY1 <Aramis Cruz - Last Filed: 09/09/18 16:30> Objective - Vital Signs/Intake and Output Vital Signs (last 24 hours): Temp Pulse Resp BP Pulse Ox 98.0 F 84 20 97/62 L 95 09/09/18 06:00 09/09/18 11:07 09/09/18 06:00 09/09/18 11:07 09/09/18 06:00 Intake and Output: 09/09/18 09/09/18 06:59 18:59 Intake Total 1140 Balance 1140 - Labs Labs: 09/09/18 06:20 09/09/18 06:20 PT 19.6 SECONDS (9.4-12.5) H 09/08/18 06:00 INR 1.73 09/08/18 06:00 APTT 34.6 Seconds (26.9-38.3) 09/03/18 15:07 Attending/Attestation - Attestation I have personally seen and examined this patient.: Yes I have fully participated in the care of the patient.: Yes I have reviewed all pertinent clinical information, including history, physical exam and plan: Yes Notes (Text): 09/09/18 16:30 Medical record note made by the resident after discussion with my direction and input after the patient was personally seen and examined by me. I have reviewed the chart and agree that the record accurately reflects by personal performance of the history, physical exam, data review, and medical decision-making, in the course for the patient. I have also personally directed the plan of care.
--- NOTE | 2018-09-08 16:46 | PN ---
DATE: 09/08/2018 SUBJECTIVE: The patient is in bed in no acute distress, nontoxic. PHYSICAL EXAMINATION VITAL SIGNS: Temperature is 97, blood pressure is 98/60, respiratory rate of 18. HEENT: Examination of HEENT is unremarkable. NECK: Supple. LUNGS: Have decreased breath sounds. HEART: Normal S1 and S2. ABDOMEN: Soft. LABORATORY DATA: Laboratory examination reveals a white count of 1.5 and the absolute neutrophil count of over 600, hemoglobin of 10, platelets of 46. Serology is noted. HIV is negative. Urine for legionella antigen is negative. Microbiology is noted. Blood cultures are negative, urine cultures are negative, and sputum cultures are normal oral sandro. ASSESSMENT AND PLAN: This is a 63-year-old female admitted with severe sepsis, neutropenic febrile patient, healthcare-associated pneumonia, pancytopenia, today is day #5 of antibiotics. The patient is doing well. We will discontinue the antibiotics. No further antibiotics necessary. Doug Koehler MD
[2018-09-08] MEDS ORDERED: levoFLOXacin 500 MG TAB PO SCH (18:00)
[2018-09-09] MEDS: Albuterol-Ipratrop 3 mg / 0.5 (3 ml) UD IH SCH ×3 (01:08→13:38)
[2018-09-09] MEDS: Alum-Mag Hydrox-Simethicone Susp (30 mL) PO SCH (05:37)
[2018-09-09] MEDS ORDERED: Pantoprazole 20 mg EC Tab PO SCH (06:00)
[2018-09-09 06:55] LABS: HEMOGLOBIN 10.3 g/dL (12.0-16.0); LYMPH # 0.5 (1.2-3.4); LYMPH % 25.7 % (22.0-35.0); MEAN CORPUSCULAR HEMOGLOBIN 30.6 pg (25.0-35.0); MEAN CORPUSCULAR HGB CONC 33.2 g/dl (31.0-37.0); MONO # 0.2 (0.1-0.6); MONO % 7.4 % (1.0-6.0); PLATELET COUNT 53 10^3/uL (120.0-450.0); RBC 3.37 10^6/uL (3.5-6.1); RED CELL DISTRIBUTION WIDTH 15.2 % (11.5-14.5)
--- NOTE | 2018-09-09 07:02 | CP.PCM.DIS ---
<Nikita Marcos - Last Filed: 09/09/18 14:19> Provider - Provider Date of Admission: 09/03/18 18:19 Attending physician: Aramis Cruz MD Primary care physician: JERSON PRIMARY CARE PROVIDER Consults: 09/03/18 18:40 General Surgery Consult Stat Comment: Consulting Provider: Bruce Costa Consulting Physician: Bruce Costa Reason for Consult: epigastric pain, pericholecystic fluid 09/03/18 19:28 Gastroenterology Consult Routine Comment: Consulting Provider: La Umanzor V Consulting Physician: La Umanzor V Reason for Consult: liver dysfunction 2/2 to prior medication use? 09/03/18 19:30 Hematology Oncology Consult Routine Comment: Consulting Provider: Oralia Reeves Consulting Physician: Oralia Reeves Reason for Consult: pancytopenia 09/03/18 19:38 Infectious Disease Consult Routine Comment: Consulting Provider: Doug Koehler Consulting Physician: Doug Koehler Reason for Consult: pneumonia + UTI + pancytopenia Time Spent in preparation of Discharge (in minutes): 45 Diagnosis - Discharge Diagnosis (1) Pneumonia Status: Resolved (2) Liver cirrhosis Status: Chronic (3) Pancytopenia Status: Chronic (4) Esophageal varices Status: Chronic (5) Rheumatoid arthritis Status: Chronic (6) Neutropenia Status: Chronic Hospital Course - Lab Results Lab Results: Micro Results 09/03/18 15:37 Blood-Venous Blood Culture - Final NO GROWTH AFTER 5 DAYS 09/03/18 15:37 Blood-Venous Gram Stain - Final TEST NOT PERFORMED 09/03/18 15:07 Blood-Venous Blood Culture - Final NO GROWTH AFTER 5 DAYS 09/03/18 15:07 Blood-Venous Gram Stain - Final TEST NOT PERFORMED 09/03/18 20:45 Sputum Gram Stain - Final 09/03/18 20:45 Sputum Sputum Culture - Final NORMAL ORAL DUC 09/03/18 22:36 Urine,Clean Catch Urine Culture - Final No Growth (<1,000 CFU/ML) Most Recent Lab Values WBC 2.0 10^3/uL (4.5-11.0) L D 09/09/18 06:20 RBC 3.37 10^6/uL (3.5-6.1) L 09/09/18 06:20 Hgb 10.3 g/dL (12.0-16.0) L 09/09/18 06:20 Hct 31.0 % (36.0-48.0) L 09/09/18 06:20 MCV 92.0 fl (80.0-105.0) 09/09/18 06:20 MCH 30.6 pg (25.0-35.0) 09/09/18 06:20 MCHC 33.2 g/dl (31.0-37.0) 09/09/18 06:20 RDW 15.2 % (11.5-14.5) H 09/09/18 06:20 Plt Count 53 10^3/uL (120.0-450.0) L 09/09/18 06:20 Manual Plt Count 27 K/mm3 (120-450) L* 09/03/18 19:00 Neut % (Auto) 66.9 % (50.0-68.0) 09/09/18 06:20 Lymph % (Auto) 25.7 % (22.0-35.0) 09/09/18 06:20 [place] % (Auto) 7.4 % (1.0-6.0) H 09/09/18 06:20 Eos % (Auto) 0.0 % (1.5-5.0) L 09/09/18 06:20 Baso % (Auto) 0.0 % (0.0-3.0) 09/09/18 06:20 Lymph # (Auto) 0.5 (1.2-3.4) L 09/09/18 06:20 [place] # (Auto) 0.2 (0.1-0.6) 09/09/18 06:20 Eos # (Auto) 0.0 (0.0-0.7) 09/09/18 06:20 Baso # (Auto) 0.00 K/mm3 (0.0-2.0) 09/09/18 06:20 Absolute Neuts (auto) 1.35 (1.4-6.5) L 09/09/18 06:20 Neutrophils % (Manual) 44 % (50.0-70.0) L 09/07/18 05:55 Band Neutrophils % 3 % (0-2) H 09/03/18 15:07 Lymphocytes % (Manual) 34 % (22.0-35.0) 09/07/18 05:55 Monocytes % (Manual) 20 % (1.0-6.0) H 09/07/18 05:55 Eosinophils % (Manual) 2 % (0.0-3.0) 09/07/18 05:55 Platelet Evaluation Low (NORMAL) 09/03/18 15:07 ESR 76 mm/hr (0.0-20.0) H 09/03/18 20:40 PT 19.6 SECONDS (9.4-12.5) H 09/08/18 06:00 INR 1.73 09/08/18 06:00 APTT 34.6 Seconds (26.9-38.3) 09/03/18 15:07 Sodium 135 mmol/L (132-148) 09/08/18 06:00 Potassium 3.9 mmol/L (3.6-5.0) 09/08/18 06:00 Chloride 107 mmol/L (98-107) 09/08/18 06:00 Carbon Dioxide 25 mmol/L (21-33) 09/08/18 06:00 Anion Gap 7 (10-20) L 09/08/18 06:00 BUN 8 mg/dL (7-21) 09/08/18 06:00 Creatinine 0.5 mg/dl (0.7-1.2) L 09/08/18 06:00 Est GFR ( Amer) > 60 09/08/18 06:00 Est GFR (Non-Af Amer) > 60 09/08/18 06:00 Random Glucose 86 mg/dL (70-110) 09/08/18 06:00 Lactic Acid 1.1 mmol/L (0.7-2.1) 09/03/18 21:05 Calcium 8.2 mg/dL (8.4-10.5) L 09/08/18 06:00 Magnesium 2.0 mg/dL (1.7-2.2) 09/03/18 15:07 Iron 22 ug/dL (45-180) L 09/03/18 19:00 TIBC 217 ug/dL (265-497) L 09/03/18 19:00 % Saturation 10 % (20-55) L 09/03/18 19:00 Ferritin 483.0 ng/mL 09/03/18 19:00 Total Bilirubin 1.6 mg/dL (0.2-1.3) H 09/08/18 06:00 Direct Bilirubin 1.2 mg/dL (0.0-0.4) H 09/03/18 19:00 AST 58 U/L (14-36) H 09/08/18 06:00 ALT 28 U/L (7-56) 09/08/18 06:00 Alkaline Phosphatase 87 U/L (38-126) 09/08/18 06:00 Troponin I < 0.01 ng/mL 09/07/18 05:35 C-React Prot High Sens > 15.00 mg/L (1.00-3.00) H 09/03/18 19:00 Total Protein 6.8 g/dL (5.8-8.3) 09/08/18 06:00 Albumin 2.5 g/dL (3.0-4.8) L 09/08/18 06:00 Globulin 4.3 gm/dL 09/08/18 06:00 Albumin/Globulin Ratio 0.6 (1.1-1.8) L 09/08/18 06:00 Lipase 179 U/L (23-300) 09/03/18 15:07 Alpha Fetoprotein 3.4 ng/mL (0.0-7.5) 09/04/18 09:00 Carcinoembryonic Ag 2.9 ng/mL (0.0-3.0) 09/04/18 09:00 CA 19-9 Antigen 38.5 U/mL (0-37) H 09/04/18 09:00 CA 125 Antigen 38.7 U/mL (0-35) H 09/04/18 09:00 Vitamin B12 724 pg/mL (239-931) 09/03/18 19:00 25-OH Vitamin D Total 49.2 NG/ML (30.0-100.0) 09/04/18 09:00 Folate 9.2 ng/mL 09/03/18 19:00 Procalcitonin 0.67 NG/ML (0.19-0.49) H 09/03/18 19:00 Urine Color Dark yellow (YELLOW) 09/03/18 15:07 Urine Appearance Clear (CLEAR) 09/03/18 15:07 Urine pH 6.5 (4.7-8.0) 09/03/18 15:07 Ur Specific [place] 1.020 (1.005-1.035) 09/03/18 15:07 Urine Protein Trace mg/dL (<30 mg/dL) H 09/03/18 15:07 Urine Glucose (UA) Negative mg/dL (NEGATIVE) 09/03/18 15:07 Urine Ketones Negative mg/dL (NEGATIVE) 09/03/18 15:07 Urine Blood Large (NEGATIVE) H 09/03/18 15:07 Urine Nitrate Negative (NEGATIVE) 09/03/18 15:07 Urine Bilirubin Small (NEGATIVE) H 09/03/18 15:07 Urine Urobilinogen 2.0 E.U./dL (<1 E.U./dL) H 09/03/18 15:07 Ur Leukocyte Esterase Trace Ginger/uL (NEGATIVE) H 09/03/18 15:07 Urine RBC 5 - 10 /hpf (0-2) H 09/03/18 15:07 Urine WBC 1 - 3 /hpf (0-6) 09/03/18 15:07 Ur Epithelial Cells 4 - 5 /hpf (0-5) 09/03/18 15:07 Urine Bacteria Small /hpf (NONE) 09/03/18 15:07 SAAD Screen Positive (Negative) H 09/03/18 20:40 SAAD Titer 1:320 Titer (<1:40) H 09/03/18 20:40 SAAD Pattern Nucleolar H 09/03/18 20:40 Hepatitis A IgM Ab Negative (NEGATIVE) 09/03/18 19:00 Hep Bs Antigen Negative (NEGATIVE) 09/03/18 19:00 Hep B Core IgM Ab Negative (NEGATIVE) 09/03/18 19:00 Hepatitis C Antibody Negative (NEGATIVE) 09/03/18 19:00 HIV 1&2 Ag/Ab, 4th Gen Nonreactive (Nonreactive) 09/04/18 10:12 HIV 1&2 Antibody Screen Negative (NEGATIVE) 09/03/18 19:00 Influenza Typ A,B (EIA) Negative for flu a/b (NEGATIVE) 09/03/18 15:07 Ur L.pneumophila Ag Negative (NEGATIVE) 09/06/18 15:00 TB Test (QFT) Nil 1.38 IU/mL 09/04/18 09:00 TB Test Mitogen - Nil 6.74 IU/mL 09/04/18 09:00 TB Test Antigen - Nil 0.01 IU/mL 09/04/18 09:00 TB Test TB - Nil <0.00 IU/mL 09/04/18 09:00 TB Test (QFT) Negative (Negative) 09/04/18 09:00 Blood Type O POSITIVE 09/04/18 09:00 Blood Type Confirm O POSITIVE 09/04/18 09:45 Antibody Screen Negative 09/04/18 09:00 BBK History Checked No verified bt 09/04/18 09:00 - Hospital Course Hospital Course: 63 year old Polish speaking female with past medical history of hepatosplenomegaly, liver cirrhosis due to unknown cause, recurrent UTI, and splenomegaly presents with epigastric abdominal pain radiating to the left side of the lumbar area and to the left scapula. Patient was admitted for pneumonia and she also has chronic leukopenia. Over the course of her hospital stay, CT abd/pelvis w/ contrast showed marked gallbladder wall thickening/pericholecystic edema. No calcified gallstones identified. CXR showed mild left basilar opacities may reflect pneumonia. HIDA scan showed normal hepatobiliary tree. Cystic duct is patent. Abdominal ultrasound showed echogenic liver may be seen in setting of hepatic parenchymal disease or fatty infiltration. Nodular hepatic contour with seen in setting of cirrhosis. Small perihepatic ascites. Massive splenomegaly. Gallbladder wall thickening/edema measuring approximately 7 mm. No evidence gallstones. Echo showed global hypokinesis of the left ventricle. Systolic function mildly impaired.Influenza, TB, HIV, and legionella testing were negative. ID, Dr. Koehler was consulted. Patient was initially treated with IV Levofloxacin, Meropenem, and Vancomycin. Patient was then treated with only Levaquin. Patient remained to be afebrile throughout her stay. GI, Dr. Umanzor and Surgery, Dr. Aguilar were consulted for her history of liver cirrhosis and gall bladder thickening. No surgical interventions indicated at this time. Patient is treated with propanolol for her history of esophageal varices. Heme- onc, Dr. Reeves consulted for pancytopenia. Patient placed on neutropenic precautions and transfuse platelets only if patient is bleeding. Upon discharge, patient was instructed to take Levaquin for 1 more day, Predisone for 3 more days, and propanolol daily. She was instructed to follow up with her pmd and sedimentationist in [place]. She was instructed to return to the emergency room for worsening or newly concerning symptoms. Patient is medically stable for discharge. Discharge Exam - Head Exam Head Exam: ATRAUMATIC, NORMAL INSPECTION, NORMOCEPHALIC - Additional Findings Additional findings: - Constitutional Appears: Well, Non-toxic, No Acute Distress - Head Exam Head Exam: ATRAUMATIC, NORMAL INSPECTION - Eye Exam Eye Exam: EOMI, Normal appearance Pupil Exam: NORMAL ACCOMODATION, PERRL - ENT Exam ENT Exam: Mucous Membranes Moist - Respiratory Exam Respiratory Exam: Clear to auscultate bilaterally absent: Rhonchi, Wheezes, Rales, Respiratory Distress, Stridor - Cardiovascular Exam Cardiovascular Exam: REGULAR RHYTHM, +S1, +S2. absent: Gallop, Rubs, Murmur - GI/Abdominal Exam GI & Abdominal Exam: Soft. absent: Distended, Firm, Guarding, Rigid, Tenderness - Extremities Exam Extremities Exam: absent: Calf Tenderness, Pedal Edema - Neurological Exam Neurological Exam: Alert, Awake, CN II-XII Intact - Psychiatric Exam Psychiatric exam: Normal Affect, Normal Mood - Skin Skin Exam: Dry, Intact, Normal Color, Warm Discharge Plan - Discharge Medications Prescriptions: Famotidine [Pepcid] 40 mg PO DAILY PRN #30 tab PRN Reason: Heartburn levoFLOXacin [Levaquin] 500 mg PO DAILY #1 tab predniSONE [predniSONE Tab] 40 mg PO DAILY #3 tab Propranolol [Inderal] 10 mg PO TID #42 tab - Follow Up Plan Condition: GUARDED Disposition: HOME/ ROUTINE Instructions: Pneumonia, Adult (DC), Neutropenia (DC) Additional Instructions: 1. Take Levaquin 500mg once daily for 1 more day. Take Prednisone 40mg once daily for 3 more days. Take Propanolol 10mg 3 times daily. 2. Resume all home medications as prescribed by your doctor. 3. Follow up with your primary care doctor within 1 week of discharge. 4. Follow up with your Summer Sessions Director (Liver doctor) in [place] for further workup. You already have an appointment. 5. Follow up with ENT (Ear, nose, throat doctor) as needed if you continue to h ave earwax problems. 6. Return to the emergency room for worsening or newly concerning symptoms. Referrals: PCP,NO [Primary Care Provider] - <Aramis Cruz - Last Filed: 09/09/18 16:30> Provider - Provider Date of Admission: 09/03/18 18:19 Attending physician: Aramis Cruz MD Primary care physician: NO PRIMARY CARE PROVIDER Consults: 09/03/18 18:40 General Surgery Consult Stat Comment: Consulting Provider: Bruce Costa Consulting Physician: Bruce Costa Reason for Consult: epigastric pain, pericholecystic fluid 09/03/18 19:28 Gastroenterology Consult Routine Comment: Consulting Provider: La Umanzor V Consulting Physician: La Umanzor V Reason for Consult: liver dysfunction 2/2 to prior medication use? 09/03/18 19:30 Hematology Oncology Consult Routine Comment: Consulting Provider: Oralia Reeves Consulting Physician: Oralia Reeves Reason for Consult: pancytopenia 09/03/18 19:38 Infectious Disease Consult Routine Comment: Consulting Provider: Doug Koehler Consulting Physician: Doug Koehler Reason for Consult: pneumonia + UTI + pancytopenia Hospital Course - Lab Results Lab Results: Micro Results 09/03/18 15:37 Blood-Venous Blood Culture - Final NO GROWTH AFTER 5 DAYS 09/03/18 15:37 Blood-Venous Gram Stain - Final TEST NOT PERFORMED 09/03/18 15:07 Blood-Venous Blood Culture - Final NO GROWTH AFTER 5 DAYS 09/03/18 15:07 Blood-Venous Gram Stain - Final TEST NOT PERFORMED 09/03/18 20:45 Sputum Gram Stain - Final 09/03/18 20:45 Sputum Sputum Culture - Final NORMAL ORAL DUC 09/03/18 22:36 Urine,Clean Catch Urine Culture - Final No Growth (<1,000 CFU/ML) Most Recent Lab Values WBC 2.0 10^3/uL (4.5-11.0) L D 09/09/18 06:20 RBC 3.37 10^6/uL (3.5-6.1) L 09/09/18 06:20 Hgb 10.3 g/dL (12.0-16.0) L 09/09/18 06:20 Hct 31.0 % (36.0-48.0) L 09/09/18 06:20 MCV 92.0 fl (80.0-105.0) 09/09/18 06:20 MCH 30.6 pg (25.0-35.0) 09/09/18 06:20 MCHC 33.2 g/dl (31.0-37.0) 09/09/18 06:20 RDW 15.2 % (11.5-14.5) H 09/09/18 06:20 Plt Count 53 10^3/uL (120.0-450.0) L 09/09/18 06:20 Manual Plt Count 27 K/mm3 (120-450) L* 09/03/18 19:00 Neut % (Auto) 66.9 % (50.0-68.0) 09/09/18 06:20 Lymph % (Auto) 25.7 % (22.0-35.0) 09/09/18 06:20 [place] % (Auto) 7.4 % (1.0-6.0) H 09/09/18 06:20 Eos % (Auto) 0.0 % (1.5-5.0) L 09/09/18 06:20 Baso % (Auto) 0.0 % (0.0-3.0) 09/09/18 06:20 Lymph # (Auto) 0.5 (1.2-3.4) L 09/09/18 06:20 [place] # (Auto) 0.2 (0.1-0.6) 09/09/18 06:20 Eos # (Auto) 0.0 (0.0-0.7) 09/09/18 06:20 Baso # (Auto) 0.00 K/mm3 (0.0-2.0) 09/09/18 06:20 Absolute Neuts (auto) 1.35 (1.4-6.5) L 09/09/18 06:20 Neutrophils % (Manual) 44 % (50.0-70.0) L 09/07/18 05:55 Band Neutrophils % 3 % (0-2) H 09/03/18 15:07 Lymphocytes % (Manual) 34 % (22.0-35.0) 09/07/18 05:55 Monocytes % (Manual) 20 % (1.0-6.0) H 09/07/18 05:55 Eosinophils % (Manual) 2 % (0.0-3.0) 09/07/18 05:55 Platelet Evaluation Low (NORMAL) 09/03/18 15:07 ESR 76 mm/hr (0.0-20.0) H 09/03/18 20:40 PT 19.6 SECONDS (9.4-12.5) H 09/08/18 06:00 INR 1.73 09/08/18 06:00 APTT 34.6 Seconds (26.9-38.3) 09/03/18 15:07 Sodium 136 mmol/L (132-148) 09/09/18 06:20 Potassium 4.9 mmol/L (3.6-5.0) 09/09/18 06:20 Chloride 106 mmol/L (98-107) 09/09/18 06:20 Carbon Dioxide 27 mmol/L (21-33) 09/09/18 06:20 Anion Gap 7 (10-20) L 09/09/18 06:20 BUN 11 mg/dL (7-21) 09/09/18 06:20 Creatinine 0.6 mg/dl (0.7-1.2) L 09/09/18 06:20 Est GFR ( Amer) > 60 09/09/18 06:20 Est GFR (Non-Af Amer) > 60 09/09/18 06:20 Random Glucose 129 mg/dL (70-110) H 09/09/18 06:20 Lactic Acid 1.1 mmol/L (0.7-2.1) 09/03/18 21:05 Calcium 8.5 mg/dL (8.4-10.5) 09/09/18 06:20 Magnesium 2.0 mg/dL (1.7-2.2) 09/03/18 15:07 Iron 22 ug/dL (45-180) L 09/03/18 19:00 TIBC 217 ug/dL (265-497) L 09/03/18 19:00 % Saturation 10 % (20-55) L 09/03/18 19:00 Ferritin 483.0 ng/mL 09/03/18 19:00 Total Bilirubin 1.4 mg/dL (0.2-1.3) H 09/09/18 06:20 Direct Bilirubin 1.2 mg/dL (0.0-0.4) H 09/03/18 19:00 AST 55 U/L (14-36) H 03/08/19 06:20 ALT 27 U/L (7-56) 09/09/18 06:20 Alkaline Phosphatase 93 U/L (38-126) 09/09/18 06:20 Troponin I < 0.01 ng/mL 09/07/18 05:35 C-React Prot High Sens > 15.00 mg/L (1.00-3.00) H 09/03/18 19:00 Total Protein 7.3 g/dL (5.8-8.3) 09/09/18 06:20 Albumin 2.7 g/dL (3.0-4.8) L 09/09/18 06:20 Globulin 4.6 gm/dL 09/09/18 06:20 Albumin/Globulin Ratio 0.6 (1.1-1.8) L 09/09/18 06:20 Lipase 179 U/L (23-300) 09/03/18 15:07 Alpha Fetoprotein 3.4 ng/mL (0.0-7.5) 09/04/18 09:00 Carcinoembryonic Ag 2.9 ng/mL (0.0-3.0) 09/04/18 09:00 CA 19-9 Antigen 38.5 U/mL (0-37) H 09/04/18 09:00 CA 125 Antigen 38.7 U/mL (0-35) H 09/04/18 09:00 Vitamin B12 724 pg/mL (239-931) 09/03/18 19:00 25-OH Vitamin D Total 49.2 NG/ML (30.0-100.0) 09/04/18 09:00 Folate 9.2 ng/mL 09/03/18 19:00 Procalcitonin 0.67 NG/ML (0.19-0.49) H 09/03/18 19:00 Urine Color Dark yellow (YELLOW) 09/03/18 15:07 Urine Appearance Clear (CLEAR) 09/03/18 15:07 Urine pH 6.5 (4.7-8.0) 09/03/18 15:07 Ur Specific [place] 1.020 (1.005-1.035) 09/03/18 15:07 Urine Protein Trace mg/dL (<30 mg/dL) H 09/03/18 15:07 Urine Glucose (UA) Negative mg/dL (NEGATIVE) 09/03/18 15:07 Urine Ketones Negative mg/dL (NEGATIVE) 09/03/18 15:07 Urine Blood Large (NEGATIVE) H 09/03/18 15:07 Urine Nitrate Negative (NEGATIVE) 09/03/18 15:07 Urine Bilirubin Small (NEGATIVE) H 09/03/18 15:07 Urine Urobilinogen 2.0 E.U./dL (<1 E.U./dL) H 09/03/18 15:07 Ur Leukocyte Esterase Trace Ginger/uL (NEGATIVE) H 09/03/18 15:07 Urine RBC 5 - 10 /hpf (0-2) H 09/03/18 15:07 Urine WBC 1 - 3 /hpf (0-6) 09/03/18 15:07 Ur Epithelial Cells 4 - 5 /hpf (0-5) 09/03/18 15:07 Urine Bacteria Small /hpf (NONE) 09/03/18 15:07 SAAD Screen Positive (Negative) H 09/03/18 20:40 SAAD Titer 1:320 Titer (<1:40) H 09/03/18 20:40 SAAD Pattern Nucleolar H 09/03/18 20:40 Hepatitis A IgM Ab Negative (NEGATIVE) 09/03/18 19:00 Hep Bs Antigen Negative (NEGATIVE) 09/03/18 19:00 Hep B Core IgM Ab Negative (NEGATIVE) 09/03/18 19:00 Hepatitis C Antibody Negative (NEGATIVE) 09/03/18 19:00 HIV 1&2 Ag/Ab, 4th Gen Nonreactive (Nonreactive) 09/04/18 10:12 HIV 1&2 Antibody Screen Negative (NEGATIVE) 09/03/18 19:00 Influenza Typ A,B (EIA) Negative for flu a/b (NEGATIVE) 09/03/18 15:07 Ur L.pneumophila Ag Negative (NEGATIVE) 09/06/18 15:00 TB Test (QFT) Nil 1.38 IU/mL 09/04/18 09:00 TB Test Mitogen - Nil 6.74 IU/mL 09/04/18 09:00 TB Test Antigen - Nil 0.01 IU/mL 09/04/18 09:00 TB Test TB - Nil <0.00 IU/mL 09/04/18 09:00 TB Test (QFT) Negative (Negative) 09/04/18 09:00 Blood Type O POSITIVE 09/04/18 09:00 Blood Type Confirm O POSITIVE 09/04/18 09:45 Antibody Screen Negative 09/04/18 09:00 BBK History Checked No verified bt 09/04/18 09:00 Attending/Attestation - Attestation I have personally seen and examined this patient.: Yes I have fully participated in the care of the patient.: Yes I have reviewed all pertinent clinical information, including history, physical exam and plan: Yes Notes (Text): 09/09/18 16:28 Medical record note made by the resident after discussion with my direction and input after the patient was personally seen and examined by me. I have reviewed the chart and agree that the record accurately reflects by personal performance of the history, physical exam, data review, and medical decision-making, in the course for the patient. I have also personally directed the plan of care. 63 year old female with past medical history of chronic liver disease, hepatosplenomegaly, Pancytopenia with HCAP Pneumonia. Cultures are negative for any growth.Patient is afebrile. Pancytopenia is stable. Patient cough and wheezing has improved.Patient is on room air and is feeling cl ose to her base line. She was evaluated by physical therapy and was cleared for discharge. Patient will be discharged home and will follow up with PCP and her GI in [place]. Management plan was discussed in detail with patient. Education was provided.
[2018-09-09 07:55] LABS: ALB/GLOB RATIO 0.6 (1.1-1.8); ALBUMIN 2.7 g/dL (3.0-4.8); ALT/SGPT 27 U/L (7-56); AST/SGOT 55 U/L (14-36); BLOOD UREA NITROGEN 11 mg/dL (7-21); CALCIUM 8.5 mg/dL (8.4-10.5); GFR NON-AFRICAN AMERICAN > 60
[2018-09-09 08:03] VITALS: RESP 20; TEMP 98; O2SAT 95
[2018-09-09] MEDS ORDERED: levoFLOXacin 500 MG TAB PO SCH (10:00)
[2018-09-09] MEDS: Cholecalciferol 1,000 INTLU TAB PO SCH (10:51)
[2018-09-09 11:08] VITALS: BP 97/62; PULSE 84
--- NOTE | 2018-09-09 22:29 | PN ---
DATE: 09/09/2018 LOCATION: The patient was seen earlier this morning in room 369, bed 2. SUBJECTIVE: She was , doing well, awake and alert and no more feverish, eating. No nausea or vomiting. PHYSICAL EXAMINATION: VITAL SIGNS: Temperature is 98, blood pressure is 97/52, respiratory rate 20, heart rate of 75. HEENT: Unremarkable. NECK: Supple. LUNGS: Decreased breath sounds. HEART: Normal S1, S2. ABDOMEN: Soft, nontender. LABORATORY DATA: Reveals white count is 20, hemoglobin of 10, platelets of 53. BUN of 11, creatinine is 0.6. Microbiology is noted. The patient is off of antibiotics. ASSESSMENT AND PLAN: This 63-year-old female was admitted with severe sepsis, neutropenic, afebrile patient, healthcare-associated pneumonia, pancytopenia, has completed the antibiotic therapy. The patient is seen earlier this morning. I had to explain to her if she developed and fevers, any chills, to come back to the emergency room as soon as possible. Will follow primary medical doctor as outpatient. Doug Koehler MD
== END 2018-09-09 14:00 | disposition home or self-care (01) | DRG 720 ==
LOC: ED 13:13 → ERH 18:19 → 2RNO 22:39 → 3RNO 09-07 12:54
PROVIDERS: ADMIT Hospitalist; ATTEND Internal Medicine
DX: A41.9 Sepsis, unspecified organism (principal); J18.9 Pneumonia, unspecified organism; D70.9 Neutropenia, unspecified; R50.81 Fever presenting with conditions classified elsewhere; R65.20 Severe sepsis without septic shock; N39.0 Urinary tract infection, site not specified; D61.818 Other pancytopenia; K74.60 Unspecified cirrhosis of liver; I85.10 Secondary esophageal varices without bleeding; J90 Pleural effusion, not elsewhere classified; R18.8 Other ascites; M06.9 Rheumatoid arthritis, unspecified; K21.9 Gastro-esophageal reflux disease without esophagitis; Y95 Nosocomial condition; R16.2 Hepatomegaly with splenomegaly, not elsewhere classified; E55.9 Vitamin D deficiency, unspecified; N83.291 Other ovarian cyst, right side; Z87.442 Personal history of urinary calculi